=== PATIENT | male | born 1985 | race Caucasian/White ===

== ENCOUNTER → 2019-08-14 12:20 | Outpatient (BNVA) | payer OTHER, SELFPAY | PROVIDERS: Visit Provider Family Medicine | DX: J01.00 Acute maxillary sinusitis, unspecified (principal); J20.8 Acute bronchitis due to other specified organisms; B96.89 Other specified bacterial agents as the cause of diseases classified elsewhere; R50.9 Fever, unspecified | CPT/HCPCS: 87804 ==

== ENCOUNTER 2019-12-25 18:19 | Emergency (ER) | payer SELFPAY ==
[2019-12-25 18:23] VITALS: BP 131/73; PULSE 103; RESP 18; TEMP 37.4; BMI 36.9
[2019-12-25 19:12] VITALS: BP 111/66; PULSE 88; RESP 18; O2SAT 99
[2019-12-25 19:39] LABS: Basophils % 0.5 %; Eosinophils # 0.2 10^3/uL (0.0-0.8); Eosinophils % 2.1 %; Hematocrit 43.5 % (42.0-52.0); Hemoglobin 14.6 g/dL (11.7-16.6); Lymphocytes # 1.6 10^3/uL (0.8-4.8); Lymphocytes % 19.1 %; Mean Corpuscular HGB Conc 33.6 g/dL (30.0-36.0); Mean Corpuscular Hemoglobin 30.7 pg (28.0-34.0); Mean Corpuscular Volume 91.6 fL (80-94); Mean Platelet Volume 10.9 fL (7.4-10.4); Monocytes # 0.4 10^3/uL (0.2-0.9); Monocytes % 4.7 %; Neutrophils # 5.9 10^3/uL (1.8-7.7); Neutrophils % 73.4 %; Nucleated Red Blood Cells % 0 %; Platelet Count 210 10^3/cmm (130-400); Red Blood Count 4.75 10^6/uL (4.1-5.3); Red Cell Distribution Width 12.9 % (12.1-15.1); White Blood Count 8.1 10^3/uL (4.0-10.0)
[2019-12-25 19:40] VITALS: BP 147/70; PULSE 84; RESP 17; O2SAT 96
[2019-12-25 20:01] LABS: Alanine Aminotransferase 21 U/L (0-41); Albumin Level 4.5 g/dL (3.5-5.2); Alkaline Phosphatase 83 IU/L (40-130); Anion Gap 13.5 (5-19); Aspartate Amino Transferase 20 U/L (0-40); Blood Urea Nitrogen 12 mg/dL (6-20); Calcium 9.9 mg/dL (8.5-10.5); Carbon Dioxide 27 mmol/L (22-29); Chloride 104 mmol/L (98-107); Globulin 2.9 g/dL (1.3-4.6); Glomerular Filtration Rate 130.7 mL/min (90-130); Glucose 104 mg/dL (65-115); Magnesium 2.1 mg/dL (1.7-2.3); Osmolality Calculated 286 mOsm/kg (285-295); Potassium 4.5 mmol/L (3.5-5.1); Sodium 140 mmol/L (136-145); Total Bilirubin 0.3 mg/dL (0.15-1.2); Total Protein 7.4 g/dL (6.6-8.7)
[2019-12-25 20:02] LABS: Add Urine Microscopic? YES; Bilirubin Urine Neg (NEGATIVE); Blood Urine Neg (Negative); Glucose Urine UA 4+ (Normal); Ketones Urine Negative (Negative); Leukocyte Esterase Urine Negative (Negative); Nitrate Urine Negative (Negative); Protein Urine Neg (Negative); Specific Gravity, Urine 1.015 (1.005-1.030); Urine Appearance Cloudy (CLEAR); Urine Color Yellow (Yellow); Urobilinogen Urine Norm (Negative); pH Urine 5 (5-7)
[2019-12-25 20:06] LABS: Amphetamines Screen Urine Negative (Negative); Barbiturates Screen Urine Negative (Negative); Benzodiazepines Screen Urine Negative (Negative); Cocaine Screen Urine Negative (Negative); Opiate Screen Urine Negative (Negative); PCP Screen Urine Negative (Negative); THC Screen Urine Negative (Negative)
--- NOTE | 2019-12-25 20:08 | W.ED.OVERDOS ---
HPI - Overdose General: Chief Complaint: Overdose Stated Complaint: UNRESPONSIVE/ AWOKEN W/NARCAN Time Seen by Provider: 12/25/19 18:33 History of Present Illness: HPI Narrative: 34-year-old male found by police/or first assist registered nurse unresponsive in his car. In the field, intranasal Narcan was given with some response. EMS arrived, at which point his second dose was given by the or first assist registered nurse prior to EMS obtaining IV access. The patient awoke, was confused, but appropriate. On his way to the hospital, he admitted to infusing fentanyl IV. Evidently he was going through withdrawals, ran out of his Suboxone, and believes he could not wait till Saturday until his prescription could be filled. On exam, he is awake, oriented x3, alert, and cooperative. MD complaint: accidental overdose Onset (ago): minute(s) Timing confirmed by: other (police/or first assist registered nurse) Review of Systems Const: Denies: fever(s) or chills Eyes: Denies: change in vision ENMT: Denies: swelling of lips/tongue or epistaxis Card: Denies: chest pain, palpitations or irregular heart rhythm Resp: Denies: dyspnea, productive cough, non-productive cough or wheezing GI: Denies: abdominal pain, nausea or vomiting : Denies: difficulty urinating or hematuria Musc: Denies: neck pain or back pain Skin/Breast: Denies: rash, pruritus or erythema Neuro: Reports: confusion; Denies: headache(s), dizziness or vertigo Psych: Denies: anxiety, suicidal ideation or homicidal ideation [facility] ED PFSH: Social History (Updated 08/14/19 @ 12:20 by Jeannine Agrawal LPN) Smoking and tobacco status: current every day smoker Alcohol intake: never Physical Exam Const: GENERAL APPEARANCE: well developed ORIENTATION/CONSCIOUSNESS: Yes oriented to person, Yes oriented to place and Yes oriented to time HENMT: COMMON NORMALS: normocephalic, external ears normal and Normal external nose present HEAD & SCALP: normocephalic FACE & SINUS: normal facial exam NOSE: Normal external nose present and No nasal discharge present EXTERNAL EAR: Yes external ears normal MOUTH: tongue normal Eye: COMMON NORMALS: Equal, round and reactive pupils present, EOMs intact bilaterally and conjunctivae normal EYELID: eyelids normal CONJUNCTIVA: Yes conjunctivae normal PUPIL: Yes Equal, round and reactive pupils present Neck/C-Spine: GENERAL: No tracheal deviation Chest: COMMONS NORMALS: normal inspection of the chest CHEST: No tenderness Resp: COMMON NORMALS: clear to auscultation bilaterally EFFORT & INSPECTION: No tachypneic, No respiratory distress, No retractions, No uses accessory muscles and No tracheal deviation AUSCULTATION: clear to auscultation bilaterally, no rhonchi, no wheezes and lung sounds not diminished Cardio: COMMON NORMALS: regular rate and regular rhythm RATE: regular rate RHYTHM: regular rhythm HEART SOUNDS: no murmurs PERIPHERAL PULSES: radial pulses present GI: INSPECTION: No abdominal distension AUSCULTATION: No Hyperactive bowel sounds present and No Hypoactive bowel sounds present PALPATION: No Guarding due to palpation present (GI) and No Rigid due to palpation PERCUSSION: no dullness to percussion and no tympanic to percussion Neuro: SENSORIUM/ORIENTATION: Yes oriented to person, Yes oriented to place and Yes oriented to time Psych: COMMON NORMALS: mental status grossly normal Skin: COMMON NORMALS: no rashes or lesions noted GENERAL SKIN EXAM: no rashes or lesions noted Course Vital Signs: Vital signs: Vital Signs Temperature 99.3 F 12/25/19 18:23 Pulse Rate 88 12/25/19 20:58 Respiratory Rate 17 12/25/19 20:58 Blood Pressure 120/62 12/25/19 20:58 Pulse Oximetry 97 12/25/19 20:58 MDM - Overdose MDM Narrative: Medical decision making narrative: Patient has been here over an hour and a half. He is still awake, appropriate. He is received a liter of fluid. His blood pressure is 132/83 rhythm sinus is 75, oxygen saturations 98% on room air. His labs are normal he will be discharged from the ER Lab Data: Labs: Lab Results 12/25/19 12/25/19 12/25/19 Range/Units 19:18 19:18 19:39 WBC 8.1 (4.0-10.0) 10^3/ uL RBC 4.75 (4.1-5.3) 10^6/u L Hgb 14.6 (11.7-16.6) g/dL Hct 43.5 (42.0-52.0) % MCV 91.6 (80-94) fL MCH 30.7 (28.0-34.0) pg MCHC 33.6 (30.0-36.0) g/dL RDW 12.9 (12.1-15.1) % Plt Count 210 (130-400) 10^3/c mm MPV 10.9 H (7.4-10.4) fL Neut % (Auto) 73.4 % Lymph % (Auto) 19.1 % [place] % (Auto) 4.7 % Eos % (Auto) 2.1 % Baso % (Auto) 0.5 % Neut # (Auto) 5.9 (1.8-7.7) 10^3/u L Lymph # (Auto) 1.6 (0.8-4.8) 10^3/u L [place] # (Auto) 0.4 (0.2-0.9) 10^3/u L Eos # (Auto) 0.2 (0.0-0.8) 10^3/u L Baso # (Auto) 0.0 (0.0-0.1) 10^3/u L Nucleated RBC % (a uto) 0 % Nucleated RBCs # 0.0 /100WBC Sodium 140 (136-145) mmol/L Potassium 4.5 (3.5-5.1) mmol/L Chloride 104 (98-107) mmol/L Carbon Dioxide 27 (22-29) mmol/L Anion Gap 13.5 (5-19) BUN 12 (6-20) mg/dL Creatinine 0.7 (0.7-1.2) mg/dL GFR Calculation 130.7 H (90-130) mL/min Glucose 104 (65-115) mg/dL Calculated Osmolal ity 286 (285-295) mOsm/k g Calcium 9.9 (8.5-10.5) mg/dL Magnesium 2.1 (1.7-2.3) mg/dL Total Bilirubin 0.3 (0.15-1.2) mg/dL AST 20 (0-40) U/L ALT 21 (0-41) U/L Alkaline Phosphata se 83 (40-130) IU/L Total Protein 7.4 (6.6-8.7) g/dL Albumin 4.5 (3.5-5.2) g/dL Globulin 2.9 (1.3-4.6) g/dL Urine Color Yellow (Yellow) Urine Appearance Cloudy (CLEAR) Urine pH 5 (5-7) Ur Specific Gravit y 1.015 (1.005-1.030) Urine Protein Neg (Negative) Urine Glucose (UA) 4+ H (Normal) Urine Ketones Negative (Negative) Urine Blood Neg (Negative) Urine Nitrate Negative (Negative) Urine Bilirubin Neg (NEGATIVE) Urine Urobilinogen Norm (Negative) mg/dL Ur Leukocyte Asuncion ase Negative (Negative) Urine RBC 5-10 H (0-2) /hpf Urine WBC 0-4 H (0-5) /hpf Ur Squamous Epith Cells 5-10 H (0-5) Amorphous Sediment 3+ Urine Bacteria 2+ H (NONE) Salicylates < 0.3 L (3-10) mg/dL Urine Opiates Scre en (Negative) ng/mL Acetaminophen < 5.0 L (10-30) ug/mL Ur Barbiturates Sc reen (Negative) ng/mL Ur Phencyclidine S crn (Negative) ng/mL Ur Amphetamines Sc reen (Negative) ng/mL U Benzodiazepines Scrn (Negative) ng/mL Urine Cocaine Scre en (Negative) ng/mL U Marijuana (THC) Screen (Negative) ng/mL Ethyl Alcohol < 10 (0-10) mg/dL 12/25/19 Range/Units 19:39 WBC (4.0-10.0) 10^3/ uL RBC (4.1-5.3) 10^6/u L Hgb (11.7-16.6) g/dL Hct (42.0-52.0) % MCV (80-94) fL MCH (28.0-34.0) pg MCHC (30.0-36.0) g/dL RDW (12.1-15.1) % Plt Count (130-400) 10^3/c mm MPV (7.4-10.4) fL Neut % (Auto) % Lymph % (Auto) % [place] % (Auto) % Eos % (Auto) % Baso % (Auto) % Neut # (Auto) (1.8-7.7) 10^3/u L Lymph # (Auto) (0.8-4.8) 10^3/u L [place] # (Auto) (0.2-0.9) 10^3/u L Eos # (Auto) (0.0-0.8) 10^3/u L Baso # (Auto) (0.0-0.1) 10^3/u L Nucleated RBC % (a uto) % Nucleated RBCs # /100WBC Sodium (136-145) mmol/L Potassium (3.5-5.1) mmol/L Chloride (98-107) mmol/L Carbon Dioxide (22-29) mmol/L Anion Gap (5-19) BUN (6-20) mg/dL Creatinine (0.7-1.2) mg/dL GFR Calculation (90-130) mL/min Glucose (65-115) mg/dL Calculated Osmolal ity (285-295) mOsm/k g Calcium (8.5-10.5) mg/dL Magnesium (1.7-2.3) mg/dL Total Bilirubin (0.15-1.2) mg/dL AST (0-40) U/L ALT (0-41) U/L Alkaline Phosphata se (40-130) IU/L Total Protein (6.6-8.7) g/dL Albumin (3.5-5.2) g/dL Globulin (1.3-4.6) g/dL Urine Color (Yellow) Urine Appearance (CLEAR) Urine pH (5-7) Ur Specific Gravit y (1.005-1.030) Urine Protein (Negative) Urine Glucose (UA) (Normal) Urine Ketones (Negative) Urine Blood (Negative) Urine Nitrate (Negative) Urine Bilirubin (NEGATIVE) Urine Urobilinogen (Negative) mg/dL Ur Leukocyte Asnucion ase (Negative) Urine RBC (0-2) /hpf Urine WBC (0-5) /hpf Ur Squamous Epith Cells (0-5) Amorphous Sediment Urine Bacteria (NONE) Salicylates (3-10) mg/dL Urine Opiates Scre en Negative (Negative) ng/mL Acetaminophen (10-30) ug/mL Ur Barbiturates Sc reen Negative (Negative) ng/mL Ur Phencyclidine S crn Negative (Negative) ng/mL Ur Amphetamines Sc reen Negative (Negative) ng/mL U Benzodiazepines Scrn Negative (Negative) ng/mL Urine Cocaine Scre en Negative (Negative) ng/mL U Marijuana (THC) Screen Negative (Negative) ng/mL Ethyl Alcohol (0-10) mg/dL Discharge Plan Discharge Patient Disposition: Home, Self-Care Clinical Impression: Poisoning by opiate or related narcotic Drug overdose Qualifiers: Encounter type: initial encounter Injury intent: accidental or unintentional Qualified Code(s): T50.901A - Poisoning by unspecified drugs, medicaments and biological substances, accidental (unintentional), initial encounter Condition: Stable Prescriptions: No Action buprenorphine-naloxone [Suboxone] 4-1 mg film 1 film SUBLINGUAL BID@08,16 RF: 0 duloxetine [Cymbalta] 30 mg capsule,delayed release(DR/EC) 30 mg PO DAILY RF: 0 Discharge Orders: Discharge Order (Routine); Ordered 12/25/19 Ordered By: Dariusz Costello Discharge Diet: Usual diet Discharge Activity: Increase activity as tolerated Patient Instructions: Opioid Withdrawal (ED) Activity Restrictions/Additional Instructions: Call for your refill on Saturday. Abstain from the use of any illicit substances. Drink plenty of water. Stay cool. Discharge Date/Time: 12/25/19 20:59 Coding Level of Care Code ED Supervisor Roving for Gypsy Fwben Exam Comprehensive
[2019-12-25 20:19] LABS: Acetaminophen < 5.0 ug/mL (10-30); Alcohol Level < 10 mg/dL (0-10); Salicylate < 0.3 mg/dL (3-10)
[2019-12-25 20:26] LABS: Add Urine Culture? No; Amorphous Sediment Urine 3+; Bacteria Urine 2+; WBC Urine 0-4 /hpf (0-5)
[2019-12-25 20:58] VITALS: BP 120/62; PULSE 88; RESP 17; O2SAT 97
== END 2019-12-25 20:59 | disposition home or self-care (01) ==
PROVIDERS: Emergency Provider Emergency Medicine
DX: T40.4X1A Poisoning by other synthetic narcotics, accidental (unintentional), initial encounter (principal); F17.210 Nicotine dependence, cigarettes, uncomplicated
CPT/HCPCS: 12345; 80053; 80306; 80307; 81001; 81003; 83735; 85025; 96360; 99283

== ENCOUNTER 2021-03-11 18:13 | Emergency (ER) | payer MEDICAID, SELFPAY ==
[2021-03-11 18:17] VITALS: BP 156/65; PULSE 109; RESP 18; TEMP 37.4; O2SAT 98; BMI 31.6
--- NOTE | 2021-03-11 18:17 | W.ED.OVERDOS ---
HPI - Overdose General: Chief Complaint: Overdose Stated Complaint: FENTANYL OVERDOSE Time Seen by Provider: 03/11/21 18:16 Source: patient and EMS Mode of arrival: EMS Limitations: no limitations History of Present Illness: HPI Narrative: 36-year-old male who states he was using fentanyl accidentally overdosed on IV fentanyl. EMS states they arrived there roughly 15 to 20 minutes ago and he had starting respirations and was unresponsive. They gave him 2 mg of Narcan he is now awake and alert. He denies trying to overdose he states he was using recreationally and must of injected too much. He is awake alert able answer all my questions appropriately. States that he uses meth sometimes denies any other drug at this time. Review of Systems Const: Denies: fever(s), chills, body aches or change in appetite Eyes: Denies: blurry vision or eye discomfort ENMT: Denies: throat pain or dental pain Card: Denies: chest pain Resp: Denies: dyspnea GI: Denies: abdominal pain, nausea, vomiting or diarrhea : Denies: dysuria Musc: Denies: neck pain or back pain Skin/Breast: Denies: rash Neuro: Denies: headache(s) Psych: Denies: depression Suleiman/Lymph: Denies: easy bruising All/Imm: Denies: urticaria PFSH ED PFSH: Social History (Updated 08/14/19 @ 12:20 by Jeannine Agrawal LPN) Smoking and tobacco status: current every day smoker Alcohol intake: never Physical Exam Const: COMMON NORMALS: no acute distress, patient oriented x3 and healthy appearing HENMT: COMMON NORMALS: normocephalic and atraumatic HEAD & SCALP: normocephalic and atraumatic Eye: COMMON NORMALS: Equal, round and reactive pupils present and EOMs intact bilaterally PUPIL: Yes Equal, round and reactive pupils present Neck/C-Spine: COMMON NORMALS: full ROM and supple Chest: COMMONS NORMALS: normal inspection of the chest and normal palpation of entire chest wall Resp: COMMON NORMALS: normal respiratory effort, No retractions, No use of accessory muscles and clear to auscultation bilaterally AUSCULTATION: clear to auscultation bilaterally Cardio: COMMON NORMALS: regular rate, regular rhythm and No murmurs present (Cardio) RATE: regular rate RHYTHM: regular rhythm GI: COMMON NORMALS: Normal to inspection, nondistended, normoactive bowel sounds present, Soft to palpation, non-tender and no masses PALPATION: Yes Soft to palpation Extremity: COMMON NORMALS: normal to inspection and full ROM Neuro: COMMON NORMALS: patient oriented x3, moves all extremities and no focal motor deficits Psych: COMMON NORMALS: mental status grossly normal, Normal thought process present and cooperative THOUGHT PROCESS: Normal thought process present Skin: COMMON NORMALS: no rashes or lesions noted and no wounds GENERAL SKIN EXAM: no rashes or lesions noted Course Vital Signs: Vital signs: Vital Signs Temperature 99.4 F 03/11/21 18:17 Pulse Rate 96 03/11/21 18:25 Respiratory Rate 14 03/11/21 18:25 Blood Pressure 156/56 03/11/21 18:25 Pulse Oximetry 99 03/11/21 18:25 MDM - Overdose MDM Narrative: Medical decision making narrative: Patient presents here with a fentanyl overdose. Patient was observed here for 2 hours and has been well-appearing and his lab work is normal. He stable for discharge is to follow-up his PCP and return if worsening. This was accidental he is not suicidal. Lab Data: Labs: Lab Results 03/11/21 03/11/21 Range/Units 18:28 18:28 WBC 5.7 (4.0-10.0) 10^3/ uL RBC 4.58 (4.1-5.3) 10^6/u L Hgb 13.5 (11.7-16.6) g/dL Hct 40.4 L (42.0-52.0) % MCV 88.2 (80-94) fl MCH 29.5 (28.0-34.0) pg MCHC 33.4 (30.0-36.0) g/dL RDW 13.8 (12.1-15.1) % Plt Count 209 (130-400) 10^3/c mm MPV 9.9 (7.4-10.4) fL Neut % (Auto) 66.5 % Lymph % (Auto) 26.7 % [place] % (Auto) 3.3 % Eos % (Auto) 3.0 % Baso % (Auto) 0.3 % Neut # (Auto) 3.82 (1.8-7.7) 10^3/u L Lymph # (Auto) 1.5 (0.8-4.8) 10^3/u L [place] # (Auto) 0.2 (0.2-0.9) 10^3/u L Eos # (Auto) 0.2 (0.0-0.8) 10^3/u L Baso # (Auto) 0.0 (0.0-0.1) 10^3/u L Nucleated RBC % (a uto) 0 % Nucleated RBCs # 0.0 /100WBC Sodium 137 (136-145) mmol/L Potassium 3.9 (3.5-5.1) mmol/L Chloride 99 (98-107) mmol/L Carbon Dioxide 29 (22-29) mmol/L Anion Gap 12.9 (5-19) BUN 10 (6-20) mg/dL Creatinine 0.7 (0.7-1.2) mg/dL GFR Calculation 129.1 (90-130) mL/min Glucose 136 H (65-115) mg/dL Calculated Osmolal ity 285 (285-295) mOsm/k g Calcium 8.6 (8.5-10.5) mg/dL Total Bilirubin 0.6 (0.15-1.2) mg/dL AST 19 (0-40) U/L ALT 17 (0-41) U/L Alkaline Phosphata se 66 (40-130) IU/L Total Protein 6.7 (6.6-8.7) g/dL Albumin 4.0 (3.5-5.2) g/dL Globulin 2.7 (1.3-4.6) g/dL Salicylates < 0.3 L (3-10) mg/dL Acetaminophen < 5.0 L (10-30) ug/mL Ethyl Alcohol < 10 (0-10) mg/dL Imaging Data^: CXR: Attestation: I personally reviewed and interpreted this imaging study as follows: Radiologist's impression: [address] [address] XRay Report Signed Patient: Denys Beverly Unit #: [id number] : 1985 Age/Sex: 36 / M ADM Date: 03/11/21 Loc: ER Room/Bed: Attending Dr: Ordering Provider/Ordering MD: Ping Washington MD Date of Service: 03/11/21 Procedure(s): XR chest 1V portable [id number] Accession Number(s): [id number] Report Number: [id number] PROCEDURE INFORMATION: Exam: XR Chest Exam date and time: 03/11/2021 6:22 PM Age: 36 years old Clinical indication: Pain; Chest pressure; Prior surgery; Surgery date: 6+ months; Surgery type: Open heart; Patient HX: Overdose on fentanyl; Additional info: Od TECHNIQUE: Imaging protocol: XR of the chest. Views: 1 view. COMPARISON: CR Chest 1 [place] [id number] 02/12/2019 9:14 AM FINDINGS: Lungs: Unremarkable. No consolidation. Pleural spaces: Unremarkable. No pleural effusion. No pneumothorax. Heart/Mediastinum: Unremarkable. No cardiomegaly. Bones/joints: Unremarkable. XR/XR chest 1V portable [id number] IMPRESSION: No acute findings. Dictated By: Aristides Garnica DO Signed By: Aristides Garnica DO Signed Date/Time: 03/11/211923 DD/ 22 EKG Data^: EKG 1: Attestation: I personally reviewed and interpreted this EKG as follows: EKG interpretation date: 03/11/21 EKG interpretation time: 18:29 Interpretation: nsr hr [address] or t wave abnormalities qrs 97 qtc 399 Discharge Plan Discharge Patient Disposition: Home Clinical Impression: Drug overdose Condition: Stable Prescriptions: No Action buprenorphine-naloxone [Suboxone] 4-1 mg film 1 film SUBLINGUAL BID@08,16 RF: 0 duloxetine [Cymbalta] 30 mg capsule,delayed release(DR/EC) 30 mg PO DAILY RF: 0 Discharge Orders: Discharge ED (Routine); Ordered 03/11/21 Ordered By: Ping Washington Discharge Diet: Advance as tolerated Discharge Activity: Resume usual activity Patient Instructions: Polysubstance Abuse (ED) Coding Level of Care Code ED Lineman Service Or Work Dispatcher for Chg Fwd Exam Comprehensive
--- NOTE | 2021-03-11 18:22 | ECG_ITS ---
[facility] Test Date: 2021-03-11 Pat Name: Denys Beverly Department: Room: Gender: Male Certified Medicine Aide: : 1985 Requested By: Ping Washington Order Number: [id number] Ernesto MD: Julio Mills M.D. Measurements Intervals [place] Rate: 98 P: 52 WI: 165 QRS: 58 QRSD: 97 T: 56 QT: 343 QTc: 439 Interpretive Statements SINUS RHYTHM INCOMPLETE RIGHT BUNDLE BRANCH BLOCK [90+ ms QRS DURATION, TERMINAL R IN V1/V2, 40+ ms S IN I/aVL/V4/V5/V6] Compared to ECG 02/12/2019 11:41:40 Incomplete right bundle-branch block now present Electronically Signed On 03-12-2021 18:01:37 CDT by Julio Mills M.D. [email or web address]
--- NOTE | 2021-03-11 18:22 | XRR_ITS ---
PROCEDURE INFORMATION: Exam: XR Chest Exam date and time: 03/11/2021 6:22 PM Age: 36 years old Clinical indication: Pain; Chest pressure; Prior surgery; Surgery date: 6+ months; Surgery type: Open heart; Patient HX: Overdose on fentanyl; Additional info: Od TECHNIQUE: Imaging protocol: XR of the chest. Views: 1 view. COMPARISON: CR Chest 1 [place] [id number] 02/12/2019 9:14 AM FINDINGS: Lungs: Unremarkable. No consolidation. Pleural spaces: Unremarkable. No pleural effusion. No pneumothorax. Heart/Mediastinum: Unremarkable. No cardiomegaly. Bones/joints: Unremarkable. XR/XR chest 1V portable [id number] IMPRESSION: No acute findings.
[2021-03-11 18:25] VITALS: BP 156/56; PULSE 96; RESP 14; O2SAT 98; O2SAT 99
--- NOTE | 2021-03-11 18:43 | PC.NURSE ---
labs drawn via IV; Patient given urinal for UA.
[2021-03-11 18:47] LABS: Basophils % 0.3 %; Eosinophils # 0.2 10^3/uL (0.0-0.8); Hematocrit 40.4 % (42.0-52.0); Hemoglobin 13.5 g/dL (11.7-16.6); Lymphocytes # 1.5 10^3/uL (0.8-4.8); Lymphocytes % 26.7 %; Mean Corpuscular HGB Conc 33.4 g/dL (30.0-36.0); Mean Corpuscular Hemoglobin 29.5 pg (28.0-34.0); Mean Corpuscular Volume 88.2 fl (80-94); Mean Platelet Volume 9.9 fL (7.4-10.4); Monocytes # 0.2 10^3/uL (0.2-0.9); Monocytes % 3.3 %; Neutrophils # 3.82 10^3/uL (1.8-7.7); Neutrophils % 66.5 %; Nucleated Red Blood Cells % 0 %; Platelet Count 209 10^3/cmm (130-400); Red Blood Count 4.58 10^6/uL (4.1-5.3); Red Cell Distribution Width 13.8 % (12.1-15.1); White Blood Count 5.7 10^3/uL (4.0-10.0)
[2021-03-11 19:06] LABS: Alanine Aminotransferase 17 U/L (0-41); Alkaline Phosphatase 66 IU/L (40-130); Anion Gap 12.9 (5-19); Aspartate Amino Transferase 19 U/L (0-40); Blood Urea Nitrogen 10 mg/dL (6-20); Calcium 8.6 mg/dL (8.5-10.5); Carbon Dioxide 29 mmol/L (22-29); Chloride 99 mmol/L (98-107); Globulin 2.7 g/dL (1.3-4.6); Glomerular Filtration Rate 129.1 mL/min (90-130); Glucose 136 mg/dL (65-115); Osmolality Calculated 285 mOsm/kg (285-295); Potassium 3.9 mmol/L (3.5-5.1); Sodium 137 mmol/L (136-145); Total Bilirubin 0.6 mg/dL (0.15-1.2); Total Protein 6.7 g/dL (6.6-8.7)
[2021-03-11 19:09] LABS: Acetaminophen < 5.0 ug/mL (10-30); Salicylate < 0.3 mg/dL (3-10)
[2021-03-11 19:10] LABS: Alcohol Level < 10 mg/dL (0-10)
[2021-03-11 20:16] VITALS: BP 142/78; PULSE 79; RESP 20; O2SAT 98
[2021-03-11 20:31] LABS: Amphetamines Screen Urine Positive (Negative); Barbiturates Screen Urine Negative (Negative); Benzodiazepines Screen Urine Negative (Negative); Cocaine Screen Urine Negative (Negative); Opiate Screen Urine Positive (Negative); PCP Screen Urine Negative (Negative); THC Screen Urine Negative (Negative)
[2021-03-13 17:11] LABS: Quest SARS-CoV-2 RNA NOT DETECTED (NOT DETECTED)
== END 2021-03-11 20:10 | disposition home or self-care (01) ==
PROVIDERS: Emergency Provider Emergency Medicine
DX: T40.411A Poisoning by fentanyl or fentanyl analogs, accidental (unintentional), initial encounter (principal); F17.210 Nicotine dependence, cigarettes, uncomplicated; Z20.822 Contact with and (suspected) exposure to COVID-19
CPT/HCPCS: 71045; 80053; 80306; 80307; 85025; 87635; 93005; 99283

== ENCOUNTER 2021-03-20 07:32 | Emergency (ER) | payer MEDICAID, SELFPAY ==
[2021-03-20] VITALS (7 sets, daily range): BP systolic 114–136; BP diastolic 58–89; PULSE 102–123; RESP 18–20; TEMP 37.5; O2SAT 95–99; BMI 31.6
--- NOTE | 2021-03-20 07:46 | W.ED.EXTPRO ---
Documented by User: JOSE LUIS Martínez 03/21/21 07:11 HPI - Extremity Problem General: Chief complaint: Extremity Injury, Upper Stated complaint: Swelling/Inflammation in Arms Time Seen by Provider: 03/20/21 07:33 History of Present Illness: HPI Narrative: Patient is a 36-year-old male who comes to the ED with upper extremity pain and swelling. Pain and swelling in both right and left elbows started 2 days ago. On Saturday patient hit his right elbow on a car mirror and since then he has had some pain and swelling of the right elbow. He rates his pain currently an 8 out of 10 says his left elbow is the most painful. He says it is hard for him to bend left elbow or rotate his wrist. Patient does admit to being an IV drug user and has recently used IV drugs in the past couple days. Patient has a history of MRSA infections. Associated symptoms: Deny chest pain, fever(s) or rash Review of Systems Const: Denies: fever(s), chills or fatigue Eyes: Denies: change in vision or eye discomfort ENMT: Denies: throat pain, odynophagia, nasal discharge or nasal congestion Card: Denies: chest pain, palpitations, edema, swelling of feet/ankles, dyspnea on exertion or orthopnea Resp: Denies: dyspnea, productive cough or non-productive cough GI: Denies: abdominal pain, nausea, vomiting, diarrhea, constipation or hematochezia : Denies: flank pain, difficulty urinating, dysuria or hematuria Musc: Reports: extremity pain (Bilateral elbow area pain); Denies: neck pain, back pain or extremity swelling Skin/Breast: Reports: erythema (Right and left elbows), skin tenderness (Right and left elbows) and skin swelling (Right and left elbows); Denies: rash or new lesions Neuro: Denies: headache(s), numbness in extremities or weakness in extremities PFS ED PFSH: Social History Smoking and tobacco status: current every day smoker Alcohol intake: never Physical Exam Const: COMMON NORMALS: patient oriented x3 and alert GENERAL APPEARANCE: cooperative, comfortable, in distress (Patient appears uncomfortable and in pain.) and diaphoretic HENMT: COMMON NORMALS: normocephalic HEAD & SCALP: normocephalic MOUTH: Normal oral and palatal mucosa present THROAT: posterior oropharynx normal and uvula midline Eye: COMMON NORMALS: Equal, round and reactive pupils present PUPIL: Yes Equal, round and reactive pupils present Neck/C-Spine: COMMON NORMALS: supple GENERAL: Yes normal visual inspection Resp: COMMON NORMALS: normal respiratory effort, No retractions, No use of accessory muscles and clear to auscultation bilaterally AUSCULTATION: clear to auscultation bilaterally Cardio: COMMON NORMALS: regular rate, regular rhythm, S1 normal heart sound present, S2 normal heart sound present, No gallops present (Cardio), No clicks present (Cardio), No murmurs present (Cardio) and Peripheral pulses 2+ throughout RATE: regular rate RHYTHM: regular rhythm HEART SOUNDS: S1 normal heart sound present and S2 normal heart sound present PERIPHERAL PULSES: Peripheral pulses 2+ throughout GI: COMMON NORMALS: Normal to inspection, nondistended, normoactive bowel sounds present, Soft to palpation, non-tender and no masses PALPATION: Yes Soft to palpation : COMMON NORMALS: Yes no CVA tenderness BLADDER/KIDNEY EXAM: Yes no CVA tenderness Back/Pelvis: COMMON NORMALS: no CVA tenderness Extremity: NARRATIVE EXTREMITY EXAM: Right left elbow erythema, warmth and tenderness of the skin. Induration and nonfluctuance on palpation. Findings suggestive of some developing cellulitis. No streaking seen up the arm. GENERAL: Yes normal exam except as noted Neuro: COMMON NORMALS: patient oriented x3 and moves all extremities SENSORIUM/ORIENTATION: Yes alert Skin: NARRATIVE SKIN EXAM: Right left elbow erythema, warmth and tenderness of the skin. Induration and nonfluctuance on palpation. Findings suggestive of some developing cellulitis. No streaking seen up the arm. GENERAL SKIN EXAM: dry skin Course Vital Signs: Vital signs: Vital Signs Temperature 99.5 F 03/20/21 07:39 Pulse Rate 102 H 03/20/21 10:17 Respiratory Rate 19 H 03/20/21 10:17 Blood Pressure 114/58 03/20/21 10:17 Pulse Oximetry 99 03/20/21 10:17 MDM - Extremity (Nontraumatic) MDM Narrative: Medical decision making narrative: Patient is a 36-year-old male comes to the ED with bilateral elbow pain and swelling. Patient admits to being an IV drug user and recent IV drug use. Patient also states that he hit his right elbow on car mirror. Left elbow is the most painful for patient. Patient has a history of MRSA infections Patient is diaphoretic and appears very uncomfortable and in pain. Around his right and left elbows he has erythema, warmth and tenderness which is suggestive of a developing cellulitis likely due to his IV drug use. No streaking seen up the arms bilaterally. White blood cell count 19.1 the rest of CBC and CMP were unremarkable. Lactic was normal at 1.8. X-ray right elbow shows no acute findings or fractures. CT of left upper extremity shows extensive cellulitis around the distal humerus and elbow region. Patient was given IV fluids and vancomycin while here in the ED. he was discharged home with a prescription for Bactrim and a written prescription for hydrocodone 5/325 mg number 6 tablets. Follow-up with your PCP in the next 3 to 5 days for reevaluation. Return to ED precautions given. Patient understood agree with plan. Lab Data: Labs: Lab Results 03/20/21 03/20/21 03/20/21 08:05 08:05 08:05 WBC 19.1 10^3/uL H 10 ^3/uL (4.0-10.0) RBC 4.89 10^6/uL 10^6 /uL (4.1-5.3) Hgb 14.4 g/dL g/dL (11.7-16.6) Hct 42.4 % % (42.0-52.0) MCV 86.7 fl fl (80-94) MCH 29.4 pg pg (28.0-34.0) MCHC 34.0 g/dL g/dL (30.0-36.0) RDW 14.0 % % (12.1-15.1) Plt Count 195 10^3/cmm 10^3 /cmm (130-400) MPV 11.3 fL H fL (7.4-10.4) Neut % (Auto) 86.3 % % Lymph % (Auto) 5.2 % % [place] % (Auto) 7.0 % % Eos % (Auto) 0.1 % % Baso % (Auto) 0.5 % % Neut # (Auto) 16.48 10^3/uL H 1 0^3/uL (1.8-7.7) Lymph # (Auto) 1.0 10^3/uL 10^3/ uL (0.8-4.8) [place] # (Auto) 1.3 10^3/uL H 10^ 3/uL (0.2-0.9) Eos # (Auto) 0.0 10^3/uL 10^3/ uL (0.0-0.8) Baso # (Auto) 0.1 10^3/uL 10^3/ uL (0.0-0.1) Nucleated RBC % (a uto) 0 % % Nucleated RBCs # 0.0 /100WBC /100W BC Sodium Cancelled Potassium Cancelled Chloride Cancelled Carbon Dioxide Cancelled Anion Gap Cancelled BUN Cancelled Creatinine Cancelled GFR Calculation Cancelled Glucose Cancelled Calculated Osmolal ity Cancelled Lactic Acid 1.8 mmol/L mmol/L (0.5-2.2) Calcium Cancelled Total Bilirubin Cancelled AST Cancelled ALT Cancelled Alkaline Phosphata se Cancelled Total Protein Cancelled Albumin Cancelled Globulin Cancelled 03/20/21 09:10 WBC RBC Hgb Hct MCV MCH MCHC RDW Plt Count MPV Neut % (Auto) Lymph % (Auto) [place] % (Auto) Eos % (Auto) Baso % (Auto) Neut # (Auto) Lymph # (Auto) [place] # (Auto) Eos # (Auto) Baso # (Auto) Nucleated RBC % (a uto) Nucleated RBCs # Sodium 131 mmol/L L mmol /L (136-145) Potassium 3.8 mmol/L mmol/L (3.5-5.1) Chloride 95 mmol/L L mmol/ L (98-107) Carbon Dioxide 24 mmol/L mmol/L (22-29) Anion Gap 15.8 (5-19) BUN 9 mg/dL mg/dL (6-20) Creatinine 0.6 mg/dL L mg/dL (0.7-1.2) GFR Calculation 154.2 mL/min H mL /min (90-130) Glucose 122 mg/dL H mg/dL (65-115) Calculated Osmolal ity 272 mOsm/kg L mOs m/kg (285-295) Lactic Acid Calcium 8.3 mg/dL L mg/dL (8.5-10.5) Total Bilirubin 1.3 mg/dL H mg/dL (0.15-1.2) AST 37 U/L U/L (0-40) ALT 66 U/L H U/L (0-41) Alkaline Phosphata se 202 IU/L H IU/L (40-130) Total Protein 6.5 g/dL L g/dL (6.6-8.7) Albumin 3.1 g/dL L g/dL (3.5-5.2) Globulin 3.4 g/dL g/dL (1.3-4.6) Imaging Data^: Xray Ortho: Attestation: I personally reviewed and interpreted this imaging study as follows: My impression: [facility] [address] [place] [address]. [place] [address] XRay Report Signed Patient: Denys Beverly Unit #: [id number] : 1985 Age/Sex: 36 / M ADM Date: 03/20/21 Loc: ER Room/Bed: Attending Dr: Ordering Provider/Ordering MD: Lon Florentino Date of Service: 03/20/21 Procedure(s): XR elbow RT min 3V* [id number] Accession Number(s): [id number] Report Number: [id number] WS: [id number] Exam: XR elbow RT min 3V* [id number] Date/Time of Exam: 03/20/2021 8:01 AM Reason For Exam: pt hit elbow on object-swelling and pain No acute fracture or dislocation. No joint effusion demonstrated. An IV cannula is noted in the antecubital fossa. Normal soft tissues. XR/XR elbow RT min 3V* [id number] IMPRESSION: 1. No fracture or dislocation. Dictated By: Gene Gomez DO Signed By: Gene Gomez DO Signed Date/Time: 03/20/21817 DD/ [address]: Attestation: I personally reviewed and interpreted this imaging study as follows: Radiologist's impression: [facility] [address] [place] [address]. [place] [address] CT Scan Report Signed Patient: Denys Beverly Unit #: [id number] : 1985 Age/Sex: 36 / M ADM Date: 03/20/21 Loc: ER Room/Bed: Attending Dr: Ordering Provider/Ordering MD: Lon Florentino Date of Service: 03/20/21 Procedure(s): [place] [address] Accession Number(s): [id number] Report Number: [id number] WS: [id number] CT LEFT UPPER EXTREMITY WITH CONTRAST. HISTORY: swelling, warmth and tenderness around elbow Technique: All CT scans at [facility] use at least one of these dose optimization techniques: automated exposure control; mA and/or kV adjustment per patient size (includes targeted exams where dose is matched to clinical indication); or iterative reconstruction. DLP: 867.83 mGy.cm Contrast: Omnipaque 350; 95 mL IV. COMPARISON: 03/20/2021 radiographs There is a large amount of soft tissue edema and cellulitis surrounding the upper extremity. Most significant surrounding the distal humerus and elbow. No focal collection to suggest an abscess. The vessels are all enhancing normally. No thrombus identified or occlusion. There is no joint effusion at the elbow. No fractures. [place] [address] IMPRESSION: 1. Extensive cellulitis surrounding the distal humerus and elbow. 2. No fracture or joint effusion. 3. No abscess. Dictated By: Erinn Alfaro DO Signed By: Erinn Alfaro DO Signed Date/Time: 03/20/21 1110 DD/ 1107 Discharge Plan Discharge Patient Disposition: Home Clinical Impression: Cellulitis Qualifiers: Site of cellulitis: extremity Site of cellulitis of extremity: upper extremity Laterality: left Qualified Code(s): L03.114 - Cellulitis of left upper limb Condition: Stable Prescriptions: New Bactrim DS 800-160 mg tablet 1 tab PO BID 10 Days Qty: 20 RF: 0 No Action buprenorphine-naloxone [Suboxone] 4-1 mg film 1 film SUBLINGUAL BID@,16 RF: 0 duloxetine [Cymbalta] 30 mg capsule,delayed release(DR/EC) 30 mg PO DAILY RF: 0 Discharge Orders: Discharge ED (Routine); Ordered 03/20/21 Ordered By: Lon Florentino Discharge Diet: Regular Discharge Activity: Increase activity as tolerated Patient Instructions: Cellulitis (ED), Opioid Safety Activity Restrictions/Additional Instructions: Follow-up with medical provider as directed Take medications as prescribed. Return to the ER or your medical provider if condition worsens. Please read and understand discharge instructions. Thank you for choosing [facility] for your healthcare needs today. Please realize this is an emergency room and that we are providing you with a medical screening exam and this may not be complete and all inclusive of all the testing and or work up that you may need to determine your ailment or severity of your illness. It is very important that you follow up as instructed or that you return to the Emergency Department should you have concerns or if your condition changes or worsens in any way. Coding Level of Care Code ED Production Cook for Chg Fwd Exam Comprehensive Documented by User: Maged Maddox DO 03/21/21 08:17 HPI - Extremity Problem General: Chief complaint: Extremity Injury, Upper Stated complaint: Swelling/Inflammation in Arms Time Seen by Provider: 03/20/21 07:33 [facility] ED PFSH: Social History Smoking and tobacco status: current every day smoker Alcohol intake: never Course Vital Signs: Vital signs: Vital Signs Temperature 99.5 F 03/20/21 07:39 Pulse Rate 102 H 03/20/21 10:17 Respiratory Rate 19 H 03/20/21 10:17 Blood Pressure 114/58 03/20/21 10:17 Pulse Oximetry 99 03/20/21 10:17 MDM - Extremity (Nontraumatic) MDM Narrative: Medical decision making narrative: Case reviewed and discussed with Fatuma Johnston agree with assessment and plan Lab Data: Labs: Lab Results 03/20/21 03/20/21 03/20/21 08:05 08:05 08:05 WBC 19.1 10^3/uL H 10 ^3/uL (4.0-10.0) RBC 4.89 10^6/uL 10^6 /uL (4.1-5.3) Hgb 14.4 g/dL g/dL (11.7-16.6) Hct 42.4 % % (42.0-52.0) MCV 86.7 fl fl (80-94) MCH 29.4 pg pg (28.0-34.0) MCHC 34.0 g/dL g/dL (30.0-36.0) RDW 14.0 % % (12.1-15.1) Plt Count 195 10^3/cmm 10^3 /cmm (130-400) MPV 11.3 fL H fL (7.4-10.4) Neut % (Auto) 86.3 % % Lymph % (Auto) 5.2 % % [place] % (Auto) 7.0 % % Eos % (Auto) 0.1 % % Baso % (Auto) 0.5 % % Neut # (Auto) 16.48 10^3/uL H 1 0^3/uL (1.8-7.7) Lymph # (Auto) 1.0 10^3/uL 10^3/ uL (0.8-4.8) [place] # (Auto) 1.3 10^3/uL H 10^ 3/uL (0.2-0.9) Eos # (Auto) 0.0 10^3/uL 10^3/ uL (0.0-0.8) Baso # (Auto) 0.1 10^3/uL 10^3/ uL (0.0-0.1) Nucleated RBC % (a uto) 0 % % Nucleated RBCs # 0.0 /100WBC /100W BC Sodium Cancelled Potassium Cancelled Chloride Cancelled Carbon Dioxide Cancelled Anion Gap Cancelled BUN Cancelled Creatinine Cancelled GFR Calculation Cancelled Glucose Cancelled Calculated Osmolal ity Cancelled Lactic Acid 1.8 mmol/L mmol/L (0.5-2.2) Calcium Cancelled Total Bilirubin Cancelled AST Cancelled ALT Cancelled Alkaline Phosphata se Cancelled Total Protein Cancelled Albumin Cancelled Globulin Cancelled 03/20/21 09:10 WBC RBC Hgb Hct MCV MCH MCHC RDW Plt Count MPV Neut % (Auto) Lymph % (Auto) [place] % (Auto) Eos % (Auto) Baso % (Auto) Neut # (Auto) Lymph # (Auto) [place] # (Auto) Eos # (Auto) Baso # (Auto) Nucleated RBC % (a uto) Nucleated RBCs # Sodium 131 mmol/L L mmol /L (136-145) Potassium 3.8 mmol/L mmol/L (3.5-5.1) Chloride 95 mmol/L L mmol/ L (98-107) Carbon Dioxide 24 mmol/L mmol/L (22-29) Anion Gap 15.8 (5-19) BUN 9 mg/dL mg/dL (6-20) Creatinine 0.6 mg/dL L mg/dL (0.7-1.2) GFR Calculation 154.2 mL/min H mL /min (90-130) Glucose 122 mg/dL H mg/dL (65-115) Calculated Osmolal ity 272 mOsm/kg L mOs m/kg (285-295) Lactic Acid Calcium 8.3 mg/dL L mg/dL (8.5-10.5) Total Bilirubin 1.3 mg/dL H mg/dL (0.15-1.2) AST 37 U/L U/L (0-40) ALT 66 U/L H U/L (0-41) Alkaline Phosphata se 202 IU/L H IU/L (40-130) Total Protein 6.5 g/dL L g/dL (6.6-8.7) Albumin 3.1 g/dL L g/dL (3.5-5.2) Globulin 3.4 g/dL g/dL (1.3-4.6) Discharge Plan Discharge Patient Disposition: Home Clinical Impression: Cellulitis Qualifiers: Site of cellulitis: extremity Site of cellulitis of extremity: upper extremity Laterality: left Qualified Code(s): L03.114 - Cellulitis of left upper limb Condition: Stable Prescriptions: New Bactrim DS 800-160 mg tablet 1 tab PO BID 10 Days Qty: 20 RF: 0 No Action buprenorphine-naloxone [Suboxone] 4-1 mg film 1 film SUBLINGUAL BID@,16 RF: 0 duloxetine [Cymbalta] 30 mg capsule,delayed release(DR/EC) 30 mg PO DAILY RF: 0 Discharge Orders: Discharge ED (Routine); Ordered 03/20/21 Ordered By: Lon lForentino Discharge Diet: Regular Discharge Activity: Increase activity as tolerated Patient Instructions: Cellulitis (ED), Opioid Safety Activity Restrictions/Additional Instructions: Follow-up with medical provider as directed Take medications as prescribed. Return to the ER or your medical provider if condition worsens. Please read and understand discharge instructions. Thank you for choosing [facility] for your healthcare needs today. Please realize this is an emergency room and that we are providing you with a medical screening exam and this may not be complete and all inclusive of all the testing and or work up that you may need to determine your ailment or severity of your illness. It is very important that you follow up as instructed or that you return to the Emergency Department should you have concerns or if your condition changes or worsens in any way. Coding Level of Care Code ED Production Cook for Gypsy Fwben Exam Comprehensive
--- NOTE | 2021-03-20 07:54 | XR_ITS ---
WS: [id number] Exam: XR elbow RT min 3V* [id number] Date/Time of Exam: 03/20/2021 8:01 AM Reason For Exam: pt hit elbow on object-swelling and pain No acute fracture or dislocation. No joint effusion demonstrated. An IV cannula is noted in the antec ubital fossa. Normal soft tissues. XR/XR elbow RT min 3V* [id number] IMPRESSION: 1. No fracture or dislocation.
[2021-03-20] MEDS: sodium chloride 0.9% 1,000 ML 999 ML IV ×2 (08:15→09:59)
[2021-03-20] MEDS: morphine 4 mg/mL SDV 1 mL IVP (08:16)
[2021-03-20 08:18] LABS: Basophils # 0.1 10^3/uL (0.0-0.1); Basophils % 0.5 %; Eosinophils % 0.1 %; Hematocrit 42.4 % (42.0-52.0); Hemoglobin 14.4 g/dL (11.7-16.6); Lymphocytes % 5.2 %; Mean Corpuscular Hemoglobin 29.4 pg (28.0-34.0); Mean Corpuscular Volume 86.7 fl (80-94); Mean Platelet Volume 11.3 fL (7.4-10.4); Monocytes # 1.3 10^3/uL (0.2-0.9); Neutrophils # 16.48 10^3/uL (1.8-7.7); Neutrophils % 86.3 %; Nucleated Red Blood Cells % 0 %; Platelet Count 195 10^3/cmm (130-400); Red Blood Count 4.89 10^6/uL (4.1-5.3); White Blood Count 19.1 10^3/uL (4.0-10.0)
[2021-03-20] MEDS: vancomycin 1,500 MG/300 ML PIGGYBACK 200 MG IV (08:26)
[2021-03-20 08:41] LABS: Lactic Sepsis W/Reflex 1.8 mmol/L (0.5-2.2)
[2021-03-20 09:49] LABS: Alanine Aminotransferase 66 U/L (0-41); Albumin Level 3.1 g/dL (3.5-5.2); Alkaline Phosphatase 202 IU/L (40-130); Anion Gap 15.8 (5-19); Aspartate Amino Transferase 37 U/L (0-40); Blood Urea Nitrogen 9 mg/dL (6-20); Calcium 8.3 mg/dL (8.5-10.5); Carbon Dioxide 24 mmol/L (22-29); Chloride 95 mmol/L (98-107); Globulin 3.4 g/dL (1.3-4.6); Glomerular Filtration Rate 154.2 mL/min (90-130); Glucose 122 mg/dL (65-115); Osmolality Calculated 272 mOsm/kg (285-295); Potassium 3.8 mmol/L (3.5-5.1); Sodium 131 mmol/L (136-145); Total Bilirubin 1.3 mg/dL (0.15-1.2); Total Protein 6.5 g/dL (6.6-8.7)
[2021-03-20] MEDS: HYDROcodone-acetaminophen 7.5-325 mg Tablet 1 TAB PO (09:59)
--- NOTE | 2021-03-20 10:30 | CT_ITS ---
WS: [id number] CT LEFT UPPER EXTREMITY WITH CONTRAST. HISTORY: swelling, warmth and tenderness around elbow Technique: All CT scans at [facility] use at least one of these dose optimization techniques: automated exposure control; mA and/or kV adjustment per patient size (includes targeted exams where dose is matched to clinical indication); or iterative reconstruction. DLP: 867.83 mGy.cm Contrast: Omnipaque 350; 95 mL IV. COMPARISON: 03/20/2021 radiographs There is a large amount of soft tissue edema and cellulitis surrounding the upper extremity. Most sig nificant surrounding the distal humerus and elbow. No focal collection to suggest an abscess. The ves sels are all enhancing normally. No thrombus identified or occlusion. There is no joint effusion at t he elbow. No fractures. [place] [id number] IMPRESSION: 1. Extensive cellulitis surrounding the distal humerus and elbow. 2. No fracture or joint effusion. 3. No abscess.
[2021-03-20] MEDS: iohexol 350 mg/mL 100 mL Btl IV (10:55)
--- NOTE | 2021-03-23 11:29 | PC.NURSE ---
reviewed blood culture results. Dr. Maddox reported patient needs to be called and told to return to the ER immediately. This RN called patients numbers that are on the chart. No answer at this time but message left.
--- NOTE | 2021-03-23 11:47 | PC.NURSE ---
Mother returned phone call after receiving the message left on the patients phone. Mother reports that she will bring the patient back to the ER to be seen.
== END 2021-03-20 11:41 | disposition home or self-care (01) ==
PROVIDERS: Emergency Provider Physician Assistant
DX: L03.114 Cellulitis of left upper limb (principal); F17.210 Nicotine dependence, cigarettes, uncomplicated
CPT/HCPCS: 36415; 73080; 73206; 80053; 83605; 85025; 87040; 87186; 87205; 96361; 96365; 96375; 99284; J2270; J3370; J7030; Q9967

== ENCOUNTER 2021-03-23 11:52 | Inpatient (IN) | payer MEDICAID, SELFPAY ==
[2021-03-23] VITALS (8 sets, daily range): BP systolic 103–172; BP diastolic 61–81; PULSE 97–119; RESP 18–26; TEMP 37.3–38.3; O2SAT 95–99; BMI 31.6
--- NOTE | 2021-03-23 12:15 | XR_ITS ---
WS: [id number] Exam: XR chest 1V portable [id number] Date/Time of Exam: 03/23/2021 12:18 PM Reason For Exam: dyspnea/cough Comparison 03/11/2021. Findings: The lungs are clear and fully expanded. Costophrenic angles are sharp. No infiltrates. Bronchovascula r relief appears normal. Cardiac silhouette is unremarkable. Bony elements are intact. XR/XR chest 1V portable [id number] IMPRESSION: Unremarkable chest radiograph.
--- NOTE | 2021-03-23 12:15 | ECG_ITS ---
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 Measurements Intervals [place] Rate: 96 P: 42 ID: [id number] QRS: 70 QRSD: 101 T: 52 QT: 330 QTc: 419 Interpretive Statements SINUS RHYTHM INCOMPLETE RIGHT BUNDLE BRANCH BLOCK [90+ ms QRS DURATION, TERMINAL R IN V1/V2, 40+ ms S IN I/aVL/V4/V5/V6] Compared to ECG 03/11/2021 18:29:00 No significant changes Electronically Signed On 03-24-2021 7:01:41 CDT by Izzy Martell M.D. [id number]
--- NOTE | 2021-03-23 12:30 | USCV_ITS ---
Denys Beverly Age: 36 Gender: M : 1985 Exam Date: 03/23/2021 12:44 Ordering Phys: Maged Maddox DO Technologist: Aminah Erwin Exam Location: [facility] [place] Indication: MRSA acute CHF BP: 172 / 80 HR: 102 Rhythm: Sinus Technical Quality: Adequate MEASUREMENTS (Male / Female) Normal Values 2D ECHO LV Diastolic Diameter PLAX 5.1 cm 4.2 - 5.9 / 3.9 - 5.3 cm LV Systolic Diameter PLAX 3.9 cm IVS Diastolic Thickness 1.1 cm 0.6 - 1.0 / 0.6 - 0.9 cm IVS Systolic Thickness 1.0 cm LVPW Diastolic Thickness 1.2 cm 0.6 - 1.0 / 0.6 - 0.9 cm LVPW Systolic Thickness 1.5 cm LVOT Diameter 2.0 cm LV Ejection Fraction 2D Teich 45.7 % LV Ejection Fraction MOD 2C 61.1 % LV Ejection Fraction 2C AL 60.7 % LA Diameter 3.4 cm LA Width 3.6 cm LA Height 5.2 cm RA Width 4.0 cm RA Height 4.8 cm Aorta at Sinotubular Diameter 3.8 cm DOPPLER AV Peak Velocity 140.0 cm/s LVOT Peak Velocity 146.0 cm/s AV Area Cont Eq vti 3.6 cm squared AV Area Cont Eq pk 3.3 cm squared MV Peak Velocity 118.0 cm/s MV Area PHT 3.0 cm squared Mitral E to A Ratio 1.1 MV E' Velocity 54.5 cm/s Mitral E to MV E' Ratio 10.0 Mitral E to LV E' Lateral Ratio 6.8 Mitral E to LV E' Septal Ratio 18.9 TR Peak Velocity 98.0 cm/s TR Peak Gradient 3.8 mmHg Right Atrial Pressure 3.0 mmHg Pulmonary Artery Systolic Pressu 6.8 mmHg PV Peak Velocity 104.0 cm/s RV Acceleration Time 0.1 s RV Ejection Time 0.3 s RV AcT/ET 0.4 FINDINGS Left Ventricle Normal left ventricular size. LV systolic function is normal with EF of 55-60%. No regional wall motion abnormalities. Normal diastolic filling pattern. Right Ventricle The right ventricle is normal in size and function. Right Atrium The right atrium is normal in size. Left Atrium The left atrium is normal in size. Mitral Valve Structurally normal mitral valve without significant stenosis or prolapse. There is mild mitral regurgitation. Aortic Valve Grossly normal without stenosis. There is no aortic regurgitation. Tricuspid Valve Not well visualized. No significant stenosis or regurgitation. Insufficient TR jet to calculate RVSP Pulmonic Valve Not well visualized. There is no pulmonic regurgitation. Pericardium Normal pericardium without effusion. Aorta Ascending aorta is mildly dilated CONCLUSIONS Limited quality echocardiogram because of poor ultrasonic windows LV systolic function is normal with EF of 55-60% Diastolic functino is normal Mild mitral regurgitation No vegetations seen however given limited quality study, can not complately rule out. No comparison studies are available Damien Mustafa MD (Electronically Signed) Final Date: 23 March 2021 18:03 S
--- NOTE | 2021-03-23 12:32 | ED_ITS ---
HPI - General Adult General: Chief complaint: General Medical Stated complaint: pcp sent vincent Time Seen by Provider: 03/23/21 12:15 History of Present Illness: HPI narrative: The patient returns today after being notified of a positive MRSA blood culture which was cultured at a previous visit to the ER earlier this week. The patient states shortness of breath appearing the last 24 hours and is notably short of breath on examination. The patient states that both sites of infection the antecubital fossa have extended since previous visit. The patient states he has not checked his temperature and is unsure of he has had a fever. The patient denies chest pain. Onset (ago): day(s) Location: upper extremity (Bilateral antecubital fossa) Radiation: non-radiation Severity: severe Severity scale (1-10): 8 Pain Consistency: constant Relieving factors: none Exacerbating factors: other (Physical touch) Associated symptoms: Reports dyspnea and malaise Review of Systems Const: Reports: malaise Card: Reports: orthopnea Resp: Reports: dyspnea Musc: Reports: extremity pain, extremity swelling, joint pain, joint swelling, joint redness, joint warmth, joint stiffness and limited range of motion PFSH ED PFSH: Medical History IV drug abuse Smoking addiction Surgical History Abscess of hand MRSA S/P patch closure of atrial septal defect Family History Mother Non-alcoholic cirrhosis Social History Smoking and tobacco status: current every day smoker Alcohol intake: never Desire information about substance/drug rehabilitation?: Yes Counseling given: Yes Physical Exam Const: COMMON NORMALS: no acute distress GENERAL APPEARANCE: cooperative and comfortable ORIENTATION/CONSCIOUSNESS: Yes awake, Yes oriented to person, Yes oriented to place and Yes oriented to time HENMT: COMMON NORMALS: normocephalic and atraumatic HEAD & SCALP: no rmocephalic and atraumatic Neck/C-Spine: COMMON NORMALS: no JVD Chest: CHEST: Yes Surgical scars present (Chest) (Sternal scarring from previous open heart surgery) Resp: COMMON NORMALS: clear to auscultation bilaterally EFFORT & INSPECTION: Yes tachypneic and Yes other (Conversational dyspnea) AUSCULTATION: clear to auscultation bilaterally Cardio: COMMON NORMALS: no JVD, regular rate, regular rhythm and No murmurs present (Cardio) RATE: regular rate RHYTHM: regular rhythm GI: COMMON NORMALS: Soft to palpation PALPATION: Yes Soft to palpation, No Tenderness to palpation present (GI) and No Guarding due to palpation present (GI) Extremity: RIGHT UPPER EXTREMITY: Yes elbow joint (Swelling and erythema ) Right elbow: Yes ROM (Decreased) LEFT UPPER EXTREMITY: Yes elbow joint (Swelling and erythema) Left elbow: Yes ROM (Decreased) Neuro: SENSORIUM/ORIENTATION: Yes oriented to person, Yes oriented to place and Yes oriented to time Course Vital Signs: Vital signs: Vital Signs Temperature 102.1 F H 03/25/21 20:11 Pulse Rate 110 H 03/25/21 20:11 Respiratory Rate 24 H 03/25/21 20:11 Blood Pressure 160/91 03/25/21 20:11 Pulse Oximetry 97 03/25/21 20:11 MDM - General Adult MDM Narrative: Medical decision making narrative: Patient had positive MRSA blood cultures the septic at this point. Most likely sepsis in his arms from IV drug use chest x-ray was unremarkable labs reviewed discussed imaging labs with the patient discussed with hospitalist will admit with IV antibiotics. Lab Data: Labs: Lab Results 03/23/21 03/23/21 03/23/21 12:35 12:35 12:35 WBC 19.0 10^3/uL H 10 ^3/uL (4.0-10.0) RBC 3.88 10^6/uL L 10 ^6/uL (4.1-5.3) Hgb 11.4 g/dL L g/dL (11.7-16.6) Hct 33.2 % L % (42.0-52.0) MCV 85.6 fl fl (80-94) MCH 29.4 pg pg (28.0-34.0) MCHC 34.3 g/dL g/dL (30.0-36.0) RDW 15.0 % % (12.1-15.1) Plt Count 281 10^3/cmm 10^3 /cmm (130-400) MPV 11.3 fL H fL (7.4-10.4) Neut % (Auto) 84.4 % % Lymph % (Auto) 7.5 % % [place] % (Auto) 4.6 % % Eos % (Auto) 0.5 % % Baso % (Auto) 0.5 % % Neut # (Auto) 16.08 10^3/uL H 1 0^3/uL (1.8-7.7) Lymph # (Auto) 1.4 10^3/uL 10^3/ uL (0.8-4.8) [place] # (Auto) 0.9 10^3/uL 10^3/ uL (0.2-0.9) Eos # (Auto) 0.1 10^3/uL 10^3/ uL (0.0-0.8) Baso # (Auto) 0.1 10^3/uL 10^3/ uL (0.0-0.1) Nucleated RBC % (a uto) 0 % % Nucleated RBCs # 0.0 /100WBC /100W BC Sodium 127 mmol/L L mmol /L (136-145) Potassium 4.1 mmol/L mmol/L (3.5-5.1) Chloride 93 mmol/L L mmol/ L (98-107) Carbon Dioxide 23 mmol/L mmol/L (22-29) Anion Gap 15.1 (5-19) BUN 13 mg/dL mg/dL (6-20) Creatinine 0.7 mg/dL mg/dL (0.7-1.2) GFR Calculation 129.1 mL/min mL/m in (90-130) Glucose 120 mg/dL H mg/dL (65-115) Calculated Osmolal ity 265 mOsm/kg L mOs m/kg (285-295) Lactic Acid 1.6 mmol/L mmol/L (0.5-2.2) Calcium 8.8 mg/dL mg/dL (8.5-10.5) Total Bilirubin 0.5 mg/dL mg/dL (0.15-1.2) AST 25 U/L U/L (0-40) ALT 35 U/L U/L (0-41) Alkaline Phosphata se 267 IU/L H IU/L (40-130) Creatine Kinase 45 U/L U/L (39-308) C-Reactive Protein NT-Pro-B Natriuret Pep 240 pg/mL H pg/mL (0-125) Total Protein 6.6 g/dL g/dL (6.6-8.7) Albumin 2.6 g/dL L g/dL (3.5-5.2) Globulin 4.0 g/dL g/dL (1.3-4.6) Urine Color Urine Appearance Urine pH Ur Specific Gravit y Urine Protein Urine Glucose (UA) Urine Ketones Urine Blood Urine Nitrate Urine Bilirubin Prot Sulfosalicyli c Acd Urine Urobilinogen Ur Leukocyte [place] ase Urine RBC Urine WBC Ur Squamous Epith Cells Amorphous Sediment Urine Bacteria Hepatitis A IgM Ab Hep Bs Antigen Hep B Core IgM Ab Hepatitis C Antibo dy HIV 1&2 Ab & HIV 1 Ag HIV 1&2 Antibody 03/23/21 03/23/21 03/23/21 12:35 12:35 12:35 WBC RBC Hgb Hct MCV MCH MCHC RDW Plt Count MPV Neut % (Auto) Lymph % (Auto) [place] % (Auto) Eos % (Auto) Baso % (Auto) Neut # (Auto) Lymph # (Auto) [place] # (Auto) Eos # (Auto) Baso # (Auto) Nucleated RBC % (a uto) Nucleated RBCs # Sodium Potassium Chloride Carbon Dioxide Anion Gap BUN Creatinine GFR Calculation Glucose Calculated Osmolal ity Lactic Acid Calcium Total Bilirubin AST ALT Alkaline Phosphata se Creatine Kinase C-Reactive Protein 206.0 mg/L H mg/L (0.0-4.9) NT-Pro-B Natriuret Pep Total Protein Albumin Globulin Urine Color Urine Appearance Urine pH Ur Specific Gravit y Urine Protein Urine Glucose (UA) Urine Ketones Urine Blood Urine Nitrate Urine Bilirubin Prot Sulfosalicyli c Acd Urine Urobilinogen Ur Leukocyte [place] ase Urine RBC Urine WBC Ur Squamous Epith Cells Amorphous Sediment Urine Bacteria Hepatitis A IgM Ab Non-reactive (Nonreactive) Hep Bs Antigen Non-reactive (Nonreactive) Hep B Core IgM Ab Non-reactive (Nonreactive) Hepatitis C Antibo dy Reactive H (Nonreactive) HIV 1&2 Ab & HIV 1 Ag Non-reactive (Non-Reactiv) HIV 1&2 Antibody Non-reactive (Non-Reactiv) 03/23/21 14:18 WBC RBC Hgb Hct MCV MCH MCHC RDW Plt Count MPV Neut % (Auto) Lymph % (Auto) [place] % (Auto) Eos % (Auto) Baso % (Auto) Neut # (Auto) Lymph # (Auto) [place] # (Auto) Eos # (Auto) Baso # (Auto) Nucleated RBC % (a uto) Nucleated RBCs # Sodium Potassium Chloride Carbon Dioxide Anion Gap BUN Creatinine GFR Calculation Glucose Calculated Osmolal ity Lactic Acid Calcium Total Bilirubin AST ALT Alkaline Phosphata se Creatine Kinase C-Reactive Protein NT-Pro-B Natriuret Pep Total Protein Albumin Globulin Urine Color Yellow (Yellow) Urine Appearance Clear (CLEAR) Urine pH 8 H (5-7) Ur Specific Gravit y 1.010 (1.005-1.030) Urine Protein Neg (Negative) Urine Glucose (UA) Norm (Normal) Urine Ketones Negative (Negative) Urine Blood 2+ H (Negative) Urine Nitrate Negative (Negative) Urine Bilirubin Neg (Negative) Prot Sulfosalicyli c Acd Negative (Negative) Urine Urobilinogen Norm mg/dL mg/dL (Negative) Ur Leukocyte [place] ase Negative (Negative) Urine RBC 0-4 /hpf H /hpf (0-2) Urine WBC 5-10 /hpf H /hpf (0-5) Ur Squamous Epith Cells 5-10 /hpf H /hpf (0-5) Amorphous Sediment Not Reportable Urine Bacteria Trace /hpf /hpf (NONE) Hepatitis A IgM Ab Hep Bs Antigen Hep B Core IgM Ab Hepatitis C Antibo dy HIV 1&2 Ab & HIV 1 Ag HIV 1&2 Antibody Discharge Plan Discharge Patient Disposition: Admitted As Inpatient Admit Provider: Casimiro Hewitt Clinical Impression: Cellulitis of arm, right, MRSA bacteremia, Cellulitis of arm, left Coding Level of 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
[2021-03-23 12:46] LABS: Basophils # 0.1 10^3/uL (0.0-0.1); Basophils % 0.5 %; Eosinophils # 0.1 10^3/uL (0.0-0.8); Eosinophils % 0.5 %; Hematocrit 33.2 % (42.0-52.0); Hemoglobin 11.4 g/dL (11.7-16.6); Lymphocytes # 1.4 10^3/uL (0.8-4.8); Lymphocytes % 7.5 %; Mean Corpuscular HGB Conc 34.3 g/dL (30.0-36.0); Mean Corpuscular Hemoglobin 29.4 pg (28.0-34.0); Mean Corpuscular Volume 85.6 fl (80-94); Mean Platelet Volume 11.3 fL (7.4-10.4); Monocytes # 0.9 10^3/uL (0.2-0.9); Monocytes % 4.6 %; Neutrophils # 16.08 10^3/uL (1.8-7.7); Neutrophils % 84.4 %; Nucleated Red Blood Cells % 0 %; Platelet Count 281 10^3/cmm (130-400); Red Blood Count 3.88 10^6/uL (4.1-5.3)
[2021-03-23] MEDS: vancomycin 1,000 MG in sodium chloride 0.9% 250 ML 250 MG IV (12:48)
[2021-03-23] MEDS: sodium chloride 0.9% 1,000 ML 999 ML IV (12:54)
[2021-03-23 13:02] LABS: Lactic Sepsis W/Reflex 1.6 mmol/L (0.5-2.2)
[2021-03-23] MEDS: acetaminophen 500 mg Tablet 1000 MG PO (13:17)
[2021-03-23] MEDS: morphine 4 mg/mL SDV 1 mL IVP (13:17)
[2021-03-23 13:22] LABS: Alanine Aminotransferase 35 U/L (0-41); Albumin Level 2.6 g/dL (3.5-5.2); Alkaline Phosphatase 267 IU/L (40-130); Anion Gap 15.1 (5-19); Aspartate Amino Transferase 25 U/L (0-40); Blood Urea Nitrogen 13 mg/dL (6-20); Calcium 8.8 mg/dL (8.5-10.5); Carbon Dioxide 23 mmol/L (22-29); Chloride 93 mmol/L (98-107); Creatine Phosphokinase 45 U/L (39-308); Glomerular Filtration Rate 129.1 mL/min (90-130); Glucose 120 mg/dL (65-115); NT Pro B Type Natriuretic Pept 240 pg/mL (0-125); Osmolality Calculated 265 mOsm/kg (285-295); Potassium 4.1 mmol/L (3.5-5.1); Sodium 127 mmol/L (136-145); Total Bilirubin 0.5 mg/dL (0.15-1.2); Total Protein 6.6 g/dL (6.6-8.7)
[2021-03-23 15:12] LABS: Blood Urine 2+ (Negative); Glucose Urine UA Norm (Normal); Ketones Urine Negative (Negative); Protein Urine Neg (Negative); Urine Appearance Clear (CLEAR); Urine Color Yellow (Yellow); pH Urine 8 (5-7)
[2021-03-23 15:13] LABS: Add Urine Microscopic? YES; Bacteria Urine TRACE /hpf; Bilirubin Urine Neg (Negative); Leukocyte Esterase Urine Negative (Negative); Nitrate Urine Negative (Negative); RBC Urine 0-4 /hpf (0-2); Sulfosalicylic Acid Urine Negative (Negative); Urobilinogen Urine Norm (Negative)
[2021-03-23 15:14] LABS: Add Urine Culture? No
--- NOTE | 2021-03-23 17:32 | P.HP_ITS ---
Providers/Chief Complaint Chief Complaint: pcp sent vincent History of Present Illness Pleasant 36-year-old gentleman with IV drug abuse of fentanyl, heroin, past history of methamphetamine use although denies recent use, history of MRSA hand infection was evaluated in ER on 03/20 due to bilateral elbow swelling after bumping into car side view mirror, was assessed by CT at that time with finding of soft tissue swelling and cellulitis, without finding of joint effusion, was discharged with Bactrim, returns due to malaise, generalized weakness, persistent swelling and pain in bilateral forearms, worse on the right with a large hard knot in the medial proximal forearm, overlying soft tissue edema of proximal forearm distal upper arm. He states he is feeling achy all over. Reports having some pain along all of his back as well. Previously was having mild headache. Not currently. After the recent visit blood cultures tested positive for MRSA, so he was called back to the hospital. He is accompanied by his mom. In the ER he is febrile with tachycardia and leukocytosis. Malaise. Repeat blood cultures were collected. He received vancomycin, bolus of IV fluid. Chest x-ray is unremarkable. TTE was obtained. Orthopedic surgery consulted. He reports last injected drugs several days ago. He is planning on seeking rehabilitation. Review of Systems Const: Reports: fever(s), chills, body aches, malaise and other (Previously headache which has resolved) Eyes: Denies: change in vision, photophobia or eye redness ENMT: Denies: throat pain, oral sores or ear or mastoid pain Card: Denies: chest pain, edema, pre-syncope or dyspnea on exertion Resp: Denies: dyspnea, productive cough, change in phlegm color or hemoptysis GI: Denies: abdominal pain, nausea, vomiting, diarrhea, constipation, hemato chezia or melena : Denies: flank pain, difficulty urinating, urinary frequency or hematuria Musc: Reports: back pain, extremity pain (Pain L forearm, dist biceps on PRM. No wrist, shoulder PRM pain. Sim on R.), extremity swelling (Both arms, L>R, pain around elbow joint, large lump in med prox forearm.) and other (Some swelling around L ankle) Skin/Breast: Denies: rash, sores or new lesions Neuro: Reports: headache(s); Denies: numbness in extremities, weakness in extremities, dizziness, confusion or seizure-like activity Endo: Denies: polyuria or polydipsia Suleiman/Lymph: Denies: easy bleeding or purpura All/Imm: Denies: urticaria, throat swelling or tongue swelling Medications/Allergies Home Medications Medication Instructions Recorded Confirmed Last Taken Type sulfamethoxazole-trimethoprim 1 tab PO BID 10 Days #20 tab 03/20/21 03/23/21 03/23/21 05:00 Rx [Bactrim DS] hydrocodone-acetaminophen 1 tab PO Q6H PRN 03/23/21 03/23/21 03/22/21 History ibuprofen 400 mg PO Q4H PRN 03/23/21 03/23/21 03/23/21 08:00 History Allergies Allergy/AdvReac Type Severity Reaction Status Date / Time No Known Allergies Allergy Verified 03/23/21 13:08 PFSH Acute PFSH: Medical History IV drug abuse Smoking addiction Surgical History Abscess of hand MRSA S/P patch closure of atrial septal defect Family History Mother Non-alcoholic cirrhosis Social History Smoking and tobacco status: current every day smoker Alcohol intake: never Substance/Drug Use: current Substance/Drug use type: Heroin and Other Other substance/drug use details: Fentanyl Desire information about substance/drug rehabilitation?: Yes Counseling given: Yes Vitals/I&O/Wt Last Vital Signs Temp 99.1 F 03/23/21 14:06 Pulse 97 03/23/21 15:10 Resp 20 H 03/23/21 15:10 BP 103/61 03/23/21 15:10 Pulse Ox 99 03/23/21 15:10 Weight last 48 hrs Weight 108.862 kg Physical Exam Narrative: EXAM NARRATIVE: Mother at bedside. Const: COMMON NORMALS: no acute distress and patient oriented x3 GENERAL APPEARANCE: ill appearing NUTRITIONAL APPEARANCE: obese HENMT: COMMON NORMALS: oropharynx normal Neck/C-Spine: COMMON NORMALS: no JVD Resp: COMMON NORMALS: normal respiratory effort and clear to auscultation bilaterally AUSCULTATION: clear to auscultation bilaterally Cardio: COMMON NORMALS: no JVD, regular rhythm, S1 normal heart sound present, S2 normal heart sound present and No murmurs present (Cardio) RHYTHM: regular rhythm HEART SOUNDS: S1 normal heart sound present and S2 normal heart sound present GI: COMMON NORMALS: Normal to inspection, nondistended, normoactive bowel sounds present, Soft to palpation and non-tender PALPATION: Yes Soft to palpation Extremity: COMMON NORMALS: no joint enlargement and no pedal edema RIGHT UPPER EXTREMITY: Yes shoulder joint (No pain on PRM), Yes wrist (No pain on PRM) and Yes hand & digits (No pain on PRM) LEFT UPPER EXTREMITY: Yes shoulder joint (No pain on PRM), Yes lower arm (Swelling arms L>R, pain around elbow joint, large lump in med prox forearm.), Yes wrist (No pain on PRM) and Yes hand & digits (No pain on PRM) LEFT LOWER EXTREMITY: Yes ankle joint (No pain on PRM, I cannot appreciate much swelling, no erythema) Neuro: COMMON NORMALS: patient oriented x3 and moves all extremities (Spontaneously. Reduced ROM in elbows due to surrounding swelling. Hands.) SENSORY EXAM: Yes extremities (Symmetrical. Denies sensory loss.) Skin: COMMON NORMALS: no rashes or lesions noted GENERAL SKIN EXAM: no rashes or lesions noted RASHES: rashes noted (Faint erythema over swelling soft tissues proximal and distal to elbows.) OTHER: I do not see obvious signs of septic embolization. Data : 03/23/21 12:35 03/23/21 12:35 A&P Assessment and plan (1) MRSA bacteremia: Discussed with him and his mother regarding MRSA bacteremia, sepsis secondary to IV drug use, cellulitis. Cannot exclude possible abscess of left forearm with localized swelling. Appreciate orthopedic assessment and expertise in excluding possibility of compartment syndrome, septic arthritis. Discussed with him and his mother continuation of antibiotic therapy, as well as closer assessment given multifocal symptoms for possible dissemination of infection. Discussed risk of possible endocarditis especially given history of cardiac procedure in the past with patch repair of ASD. TTE had been done in the ER. Follow-up results. Discussed if unremarkable will need JULISA. Discussed will need additional assessment given headache with MRI brain, given back pain with MRI spine, will request also MRI of left elbow, left ankle. Obtain CRP, ESR. Discussed with him and his mother will require IV antibiotics, duration of which is to be determined depending on further investigations. Case management consultation. Status: Acute (2) Sepsis: With fever 101 Fahrenheit, leukocytosis 19,000, sinus tachycardia 97 bpm. Secondary to MRSA following IV drug use, cellulitis of arms. Assess for secondary foci of infection as above. Continue vancomycin. Lactic acid normal. Status: Acute (3) Headache: As above Status: Acute (4) Back pain: As above. No sensory levels. Moving all extremities spontaneously. Status: Acute (5) Localized swelling of left forearm: As above. Status: Acute (6) Cellulitis of arm, left: As above. Additionally assess for DVT with venous duplex. Status: Acute (7) Cellulitis of arm, right: As above. Additionally assess for DVT with venous duplex. Status: Acute (8) Left ankle swelling: As above. Status: Acute (9) IV drug abuse: He states he plans to seek rehabilitation. Encourage cessation, discussed current condition and concerns as relating to IV drug use, risk of other complications. Will request case management to assist him with options for rehabilitation. Status: Acute (10) Smoking addiction: We discussed smoking cessation for 5 minutes, he understands that he should quit. He is agreeable to nicotine replacement and request for patches. Discussed with him we will also add nicotine lozenges as needed for cravings. Status: Acute (11) Hyponatremia: Possibly hypovolemic with poor oral intake. Received IV fluid bolus in ER. Continue regular diet. Recheck sodium. Status: Acute (12) Abnormal urinalysis: With 5-10 squamous patella cells. Recheck. Status: Acute Additional A&P Information History of patch repair of patch repair of ASD in childhood Past history of MRSA infection of right hand Attestations Medical Necessity Statement*: Admission of over 2 midnights is going to be needed for assessment management of MRSA bacteremia with sepsis, in the setting of IV drug use, bilateral arm cellulitis, and assessment for secondary foci of infection, possible endocarditis with history of ASD and cardiac procedure. 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
--- NOTE | 2021-03-23 17:39 | P.CONIM_ITS ---
Providers/Reason For Consult Consulting Physician/Specialty*: Pipo Aguila MD; orthopedic surgery Reason for Consult*: Bilateral forearm cellulitis and swelling, rule out compartment syndrome History of Present Illness History of Present Illness Denys Beverly is a 36 year old male with a history of IV drug abuse. He was last seen in our emergency room on complaining of bilateral elbow swelling and pain. He was discharged on Bactrim but returned today with continued complaints of malaise weakness and persistent swelling and pain in his forearms. Meds/Allergies Home Medications and Allergies Home Medications Medication Instructions Recorded Confirmed Last Taken Type sulfamethoxazole-trimethoprim 1 tab PO BID 10 Days #20 tab 03/20/21 03/23/21 03/23/21 05:00 Rx [Bactrim DS] hydrocodone-acetaminophen 1 tab PO Q6H PRN 03/23/21 03/23/21 03/22/21 History ibuprofen 400 mg PO Q4H PRN 03/23/21 03/23/21 03/23/21 08:00 History Allergies Allergy/AdvReac Type Severity Reaction Status Date / Time No Known Allergies Allergy Verified 03/23/21 13:08 PFSH Acute PFSH: Medical History IV drug abuse Smoking addiction Surgical History Abscess of hand MRSA S/P patch closure of atrial septal defect Family History Mother Non-alcoholic cirrhosis Social History Smoking and tobacco status: current every day smoker Alcohol intake: never Substance/Drug Use: current Substance/Drug use type: Heroin and Other Other substance/drug use details: Fentanyl Desire information about substance/drug rehabilitation?: Yes Counseling given: Yes Vitals/I&O/Wt Last Vital Signs Temp 99.1 F 03/23/21 14:06 Pulse 97 03/23/21 15:10 Resp 20 H 03/23/21 15:10 BP 103/61 03/23/21 15:10 Pulse Ox 99 03/23/21 15:10 Weight last 48 hrs Weight 240 lb Physical Exam Narrative: EXAM NARRATIVE: Patient is supine in his stretcher. He answers questions appropriately. He appears oriented to person place and time. Left upper extremity: He lacks approximately 30 degrees extension of the elbow and can flex to 150 degrees. He can pronate and supinate 70 degrees in each direction He has areas of firmness over his distal anterior medial arm but the more proximal arm is soft. There is erythema extending from approximately the proximal third of the arm distally to the proximal third of the forearm medially. He can actively flex and extend his elbow with some restriction in range of motion. He can reach a complete clenched fist as well as extend and oppose and abduct his thumb. His sensation is intact light touch. Right upper extremity: He lacks approximately 30 degrees extension of the elbow and can flex to 150 degrees. He can pronate and supinate 70 degrees in each direction He has firm swelling over his anterior medial elbow with erythema from the medial arm to medial forearm. an actively flex and extend his elbow with some restriction in range of motion. He can reach a complete clenched fist as well as extend and oppose and abduct his thumb. His sensation is intact light touch. Left ankle: He has erythema over the medial ankle. There is no fluctuance or induration. He can dorsiflex his ankle 30 degrees and plantar flex 30 degrees A&P Assessment and plan (1) Cellulitis of left ankle: Status: Acute (2) Cellulitis of arm, right: Status: Acute (3) Cellulitis of arm, left: I can see nothing to suggest compartment syndrome. The patient certainly has cellulitis in both upper extremities and his left ankle. I cannot completely exclude the possibility of abscesses in his arms. I think the best place to begin will be to get him admitted to the hospital and begin IV antibiotics. We can follow his clinical response. If induration and swelling continues to localize in the arms we could consider MRI imaging. This is a completion of a evaluation and history was performed on 03/23/2021 at 5:30 PM. 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
[2021-03-23 19:32] LABS: HIV 1 & 2 Antibody Non-Reactive (Non-Reactiv); HIV 1 & 2 Antigen Non-Reactive (Non-Reactiv)
[2021-03-23] MEDS: lactated ringers 1,000 ML 150 ML IV (20:19)
[2021-03-23] MEDS: vancomycin 1,500 MG/300 ML PIGGYBACK 200 MG IV (20:26)
[2021-03-23] MEDS: morphine 4 mg/mL SDV 1 mL 2 MG IVP (20:36)
[2021-03-23 21:01] LABS: Hepatitis A Antibody IgM Non-Reactive (Nonreactive); Hepatitis B Core IgM Non-Reactive (Nonreactive); Hepatitis B Surface Antigen Non-Reactive (Nonreactive); Hepatitis C Virus Antibody Reactive (Nonreactive)
[2021-03-23 23:17] LABS: Charge for UA Resulting for Rev
[2021-03-23] MEDS: nicotine 4 mg lozenge MUCOUS MEM (23:19)
[2021-03-23 23:41] LABS: Add Urine Microscopic? YES; Bilirubin Urine Neg (Negative); Blood Urine 2+ (Negative); Glucose Urine UA Norm (Normal); Ketones Urine Negative (Negative); Leukocyte Esterase Urine Negative (Negative); Nitrate Urine Negative (Negative); Protein Urine Neg (Negative); Urine Appearance Clear (CLEAR); Urine Color Yellow (Yellow); Urobilinogen Urine Norm (Negative); pH Urine 5 (5-7)
[2021-03-24] VITALS (10 sets, daily range): BP systolic 115–149; BP diastolic 51–77; PULSE 95–106; RESP 14–22; TEMP 36.8–39.5; O2SAT 95–97
[2021-03-24] MEDS: acetaminophen 325 mg Tablet 650 MG PO ×2 (00:30→16:03)
[2021-03-24] MEDS: morphine 4 mg/mL SDV 1 mL 2 MG IVP ×5 (02:22→23:32)
--- NOTE | 2021-03-24 02:45 | PC.NURSE ---
It was reported to this nurse by the charge nurse that the patient had a 103 temp, charge stated she was giving him tylenol at 0003, this nurse had TELEPHONE SERVICES SALES REPRESENTATIVE recheck temp at 0130 and it was 98.7.
[2021-03-24] MEDS: lactated ringers 1,000 ML 150 ML IV ×3 (03:08→20:18)
[2021-03-24] MEDS: vancomycin 1,500 MG/300 ML PIGGYBACK 200 MG IV ×3 (04:05→19:32)
[2021-03-24 06:10] LABS: Basophils # 0.1 10^3/uL (0.0-0.1); Basophils % 0.3 %; Eosinophils % 0.3 %; Hematocrit 31.9 % (42.0-52.0); Hemoglobin 10.7 g/dL (11.7-16.6); Lymphocytes # 1.6 10^3/uL (0.8-4.8); Lymphocytes % 10.1 %; Mean Corpuscular HGB Conc 33.5 g/dL (30.0-36.0); Mean Corpuscular Hemoglobin 29.4 pg (28.0-34.0); Mean Corpuscular Volume 87.6 fl (80-94); Mean Platelet Volume 11.3 fL (7.4-10.4); Monocytes # 1.2 10^3/uL (0.2-0.9); Monocytes % 7.9 %; Neutrophils # 11.83 10^3/uL (1.8-7.7); Neutrophils % 76.4 %; Nucleated Red Blood Cells % 0 %; Platelet Count 224 10^3/cmm (130-400); Red Blood Count 3.64 10^6/uL (4.1-5.3); Red Cell Distribution Width 15.1 % (12.1-15.1); White Blood Count 15.5 10^3/uL (4.0-10.0)
[2021-03-24 06:19] LABS: Alanine Aminotransferase 30 U/L (0-41); Albumin Level 2.4 g/dL (3.5-5.2); Alkaline Phosphatase 242 IU/L (40-130); Aspartate Amino Transferase 21 U/L (0-40); Blood Urea Nitrogen 12 mg/dL (6-20); Carbon Dioxide 22 mmol/L (22-29); Chloride 100 mmol/L (98-107); Globulin 3.1 g/dL (1.3-4.6); Glomerular Filtration Rate 129.1 mL/min (90-130); Glucose 87 mg/dL (65-115); Osmolality Calculated 277 mOsm/kg (285-295); Sodium 134 mmol/L (136-145); Total Bilirubin 0.6 mg/dL (0.15-1.2); Total Protein 5.5 g/dL (6.6-8.7)
[2021-03-24 06:22] LABS: Anion Gap 16.2 (5-19); Potassium 4.2 mmol/L (3.5-5.1)
--- NOTE | 2021-03-24 07:23 | P.PN_ITS ---
Subjective Subjective: Interval history: Patient complains of back pain and persistent left arm pain. Vitals/I&O/Wt Last Vital Signs Temp 100.2 F H 03/24/21 04:00 Pulse 105 H 03/24/21 04:00 Resp 19 H 03/24/21 04:00 BP 146/71 03/24/21 04:00 Pulse Ox 96 03/24/21 04:00 03/23/21 03/24/21 03/24/21 22:59 06:59 14:59 Intake Total 300 / 300 1540 / 1840 Output Total 300 / 300 600 / 900 Balance 0 / 0 940 / 940 Weight last 48 hrs Weight 240 lb Physical Exam Narrative: EXAM NARRATIVE: Right upper extremity: Swelling much improved. Much less erythema medial arm Left upper extremity: Continued fullness and erythema over anterior medial forearm. This could represent a deep abscess. I would recommend MRI. I understand that the patient has multiple other potential sources of infection including his spine and cardiac evaluation will also be involved. I do not think that evaluation arm is emergent knee but is something we will certainly need to address in the next few days. Left ankle: Erythema and swelling resolved Data : 03/24/21 05:34 03/24/21 05:34 Micro: Microbiology 03/23/21 12:48 Blood Culture - Preliminary Blood SPECIMEN COLLECTED 03/23/21 12:48 Blood Culture - Preliminary Blood SPECIMEN COLLECTED A&P Assessment and plan (1) Cellulitis of arm, left: Continued swelling induration in anterior medial forearm is worrisome for abscess. Would recommend diagnostic imaging with MRI. Status: Acute (2) Cellulitis of arm, right: Swelling and erythema much improved. Clinical response is consistent with cellulitis. Feel medical management with appropriate antibiotics should be the current course now. Status: Acute (3) Cellulitis of left ankle: Erythema and swelling much improved. I can agree with appropriate antibiotics and continued clinical observation for ankle. Status: Acute Attestations 2 Medical Necessity Statement*: As per medicine. Coding Level of Care Code Acute General Medical Practitioner for [employer] Claros Diagnoses Cellulitis of arm, left L03.114 Cellulitis of arm, right L03.113 Cellulitis of left ankle L03.116
[2021-03-24] MEDS: nicotine 21 mg Patch 1 PATCH TRANSDERMA ×2 (08:16→13:50)
--- NOTE | 2021-03-24 10:19 | PC.NURSE ---
Received a call from Wilmer, protection analyst [employer] for [employer] and she states that patient will not be able to receive all MRIs ordered today d/t being unable to receive contrast for that many areas at once. I called and spoke with Dr. Hewitt and he would like to proceed with using both contrast and no contrast for all tests and would prefer the head and cervical MRI should take precedence today. I called back to Wilmer with [facility] and informed her of this and she states that they will do head and cervical today, then thoracic and lumbar on 03/25 at 1100, then left elbow on 03/26 at 1200. I inquired as to if we could use that as definitive appointment times and she states that yes, they do their own scheduling after hours and on the weekend and that we would just need to arrange transportation and ensure a nurse is able to go with the patient to the tests at that time. I called [facility] and scheduled transport times for 03/25 and 03/26 and informed Ginger Rangel LPN and Bharath Leone heel trimmer Nurse.
[2021-03-24] MEDS: gadobenate dimeglumine 20 mL vial IV (10:45)
--- NOTE | 2021-03-24 14:51 | PC.CHAP ---
Pastoral Care Encounter/Spiritual Assessment Type of Contact [] Declined net maker visit [] Patient/Family/Request visit [] Outpatient visit [] Follow-up visit [] Physician referral [] Code/Alert [] Routine visit [] Staff referral [] Actively dying [] Patient sleeping [] Family support [] [] Out of room [] Palliative care [] [] Receiving care in room [] Pre-surgical visit [] Trauma [] Long length of stay [] ICU visit [xx] Other: ISOLATION Relational/Emotional Strength [] Patient feels connected with others/family/visitors/staff [] Distress [] Loneliness/isolation [] Abandonment Spirituality of Patient [] Person of Niecy [] Attends Uatsdin of their Niecy [] Believes in Prayer [] Reads Bible or Sabianist materials [] There are Spiritual issues to be addressed Racing Mechanic Interventions [] Prayer [] Active listening [] Non-anxious presence [] Spiritual/emotional support [] Crisis/trauma care [] Spiritual counseling [] Bereavement support [] Provided bereavement packet [] Provided Bible/devotional materials [] Provided toy/stuffed animal, coloring book to patient or family member [] Provided Communion [] Anointing/[place] [] Salvation [] Completed spiritual assessment [] Other: Impact on Illness or Injury [] Angry [] Fearful [] Anxious [] Often cries [] Exhaustion [] Unable to work [] Unable to attend jain [] Unable to walk/stand [] Unable to read [] Unable to drive [] Unable to eat/drink [] Unable to sleep [] Unable to be with family [] Patient intubated [] Other: Summary Time spent with patient
[2021-03-24] MEDS: nicotine 4 mg lozenge MUCOUS MEM (16:16)
--- NOTE | 2021-03-24 16:30 | P.PN_ITS ---
Subjective Subjective: Interval history: Still malaised, although feeling overall little better than yesterday. No headache. Pain in entire back. Left arm. Reports nicotine craving, nicotine patch was taken off during MRI. Request for now. Also request for medication to help him sleep at night. Discussed with him trazodone. Vitals/I&O/Wt Last Vital Signs Temp 101.8 F H 03/24/21 15:56 Pulse 105 H 03/24/21 15:56 Resp 20 H 03/24/21 15:56 BP 130/57 03/24/21 15:56 Pulse Ox 96 03/24/21 15:56 03/24/21 03/24/21 03/24/21 06:59 14:59 22:59 Intake Total 1540 / 1840 1667.5 / 1667.5 Output Total 600 / 900 Balance 940 / 940 1667.5 / 1667.5 Weight last 48 hrs Weight 108.862 kg Weight 108.862 kg Physical Exam Const: COMMON NORMALS: no acute distress, patient oriented x3 and alert GENERAL APPEARANCE: ill appearing (Little bit better than yesterday) NUTRITIONAL APPEARANCE: obese ORIENTATION/CONSCIOUSNESS: Yes awake HENMT: COMMON NORMALS: oropharynx normal Neck/C-Spine: COMMON NORMALS: no JVD Resp: COMMON NORMALS: normal respiratory effort and clear to auscultation bilaterally AUSCULTATION: clear to auscultation bilaterally Cardio: COMMON NORMALS: no JVD, regular rhythm, S1 normal heart sound present, S2 normal heart sound present and No murmurs present (Cardio) RHYTHM: regular rhythm HEART SOUNDS: S1 normal heart sound present and S2 normal heart sound present GI: COMMON NORMALS: Normal to inspection, nondistended, normoactive bowel sounds present, Soft to palpation and non-tender PALPATION: Yes Soft to palpation Extremity: COMMON NORMALS: no joint enlargement and no pedal edema Neuro: COMMON NORMALS: patient oriented x3 and moves all extremities (Spontaneously. Reduced ROM in elbows due to surrounding swelling.) SENSORIUM/ORIENTATION: Yes alert SENSORY EXAM: Yes extremities (Symmetrical. Denies sensory loss.) Skin: COMMON NORMALS: no rashes or lesions noted GENERAL SKIN EXAM: no rashes or lesions noted RASHES: rashes noted (Faint erythema over swelling soft tissues proximal and distal to elbows.) OTHER: I do not see obvious signs of septic embolization. Data : 03/24/21 05:34 03/24/21 05:34 Micro: Microbiology 03/23/21 12:48 Blood Culture - Preliminary Blood Gram positive cocci 03/23/21 12:48 Blood Culture - Preliminary Blood SPECIMEN COLLECTED A&P Assessment and plan (1) MRSA bacteremia: Again gram-positive cocci in blood from ER at presentation currently. Continue vancomycin. Cannot complete all MRI studies today. Head and cervical spine completed. Additional studies pending including thoracic and lumbar spine, left elbow. Left ankle MRI canceled as per orthopedics due to low suspicion for joint infection. MRSA bacteremia, sepsis secondary to IV drug use, cellulitis. Cannot exclude possible abscess of left forearm with localized swelling. Discussed with him and his mother continuation of antibiotic therapy, as well as closer assessment given multifocal symptoms for possible dissemination of infection. Discussed risk of possible endocarditis especially given history of cardiac procedure in the past with patch repair of ASD. TTE had been done. Low quality echo. No obvious vegetation. Will need JULISA. CRP 206, ESR pending Discussed with him and his mother will require IV antibiotics, duration of which is to be determined depending on further investigations. Case management consultation. Status: Acute (2) Sepsis: With some improvement. Again febrile. Leukocytosis slightly better. Still tachycardic. Secondary to MRSA following IV drug use, cellulitis of arms. Assess for secondary foci of infection as above. Continue vancomycin. Lactic acid normal. Status: Acute (3) Headache: As above Status: Acute (4) Back pain: As above. No sensory levels. Moving all extremities spontaneously. Status: Acute (5) Localized swelling of left forearm: As above. Status: Acute (6) Cellulitis of arm, left: As above. Additionally assess for DVT with venous duplex. Status: Acute (7) Cellulitis of arm, right: As above. Additionally assess for DVT with venous duplex. Status: Acute (8) Left ankle swelling: As above. Status: Acute (9) IV drug abuse: He states he plans to seek rehabilitation. Encourage cessation, discussed current condition and concerns as relating to IV drug use, risk of other complications. Will request case management to assist him with options for rehabilitation. Status: Acute (10) Smoking addiction: Continue to encourage cessation. Nicotine replacement and request for patches. Discussed with him we will also add nicotine lozenges as needed for cravings. Status: Acute (11) Hyponatremia: Improving. Possibly hypovolemic with poor oral intake. Received IV fluid bolus in ER. Continue regular diet. Status: Acute (12) Abnormal urinalysis: With 5-10 squamous patella cells. Recheck unremarkable. Status: Acute Additional A&P Information History of patch repair of patch repair of ASD in childhood Past history of MRSA infection of right hand Attestations Medical Necessity Statement*: Continue admission for cyst management of MRSA bacteremia following IV drug use, sepsis. 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
--- NOTE | 2021-03-24 19:08 | MR_ITS ---
WS: [id number] MRI BRAIN WITH AND WITHOUT CONTRAST HISTORY: MRSA bacteremia, IVD use, sepsis, headache COMPARISON: None available. TECHNIQUE: Multiplanar imaging performed through the brain with MultiHance 20 ml's IV. No acute infarcts are seen. Crocker-white matter differentiation is well preserved. Perivascular space n ear the medial RIGHT temporal lobe. There are numerous scattered bilateral susceptibility artifacts throughout the brain. These are proba loreta from prior hemorrhage at the crocker-white matter junction. No large or acute hemorrhage. Ventricles and extra-axial spaces are normal. Clivus and pituitary gland are normal. Visualized posterior fossa and brainstem are also normal. Postcontrast images are negative for masses or vascular malformations. No evidence for cerebritis or abscess. Dural venous sinuses are normal. Paranasal sinuses: Well aerated with no significant disease. Mastoid air cells: Normal. Calvarium and scalp: Normal. MR/MR head wo/w con [id number] IMPRESSION: 1. No acute infarct or acute hemorrhage. 2. No cerebral abscess or cerebritis. 3. Numerous scattered susceptibility artifacts in the subcortical white matter probably from prior injury with remote petechial hemorrhages.
--- NOTE | 2021-03-24 19:08 | USCV_ITS ---
Denys Beverly Age: 36 Gender: M : 1985 Exam Date: 03/24/2021 06:12 Ordering Phys: Casimiro Hewtit MD Technologist: Liz Holliday Exam Location: [facility] [place] Indication: SWELLING, PAIN, IVDU, EVAL FOR DVT HISTORY: Upper extremity swelling. Upper extremity pain. PROCEDURES: Venous duplex imaging was performed in bilateral upper extremities. The following venous structures were evaluated: internal jugular vein, subclavian vein, axillary vein, and brachial veins. In addition, the basilic vein, cephalic vein, radial vein, and ulnar vein. Serial compression, augmentation maneuvers, and spectral Doppler flow evaluation were performed. FINDINGS: Normal 2-D, color Doppler and phasicity noted in the bilateral upper extremity venous system extending from the internal jugular veins through the main forearms. No thrombosis or occlusion noted. Bilatera subcutaneous edema. CONCLUSIONS No evidence of bilateral upper extremity DVT. Bilateral upper extremity subcutaneous edema. Dr. Erinn Alfrao DO (Electronically Signed) Final Date: 24 March 2021 08:47 S
--- NOTE | 2021-03-24 19:08 | MR_ITS ---
WS: [id number] MRI CERVICAL SPINE with and without contrast. HISTORY: MRSA bacteremia, IVD use, sepsis, pain of entire back COMPARISON: None available. Technique: Multiplanar, multisequence noncontrast imaging of the cervical spine. Contrast imaging sub mitted. Quality of this examination is suboptimal. Normal cervical alignment. No discitis or osteomyelitis. No cord edema. Signal within the cervical cord is normal. Visualized posterior fossa is unremarkable. Craniocervical junction, C1 and C2 relationship, odontoid process and soft tissues are normal. C2-C3: Normal. C3-C4: Moderate size RIGHT paracentral disc osteophyte complex contacting the RIGHT lateral cervical cord and narrowing the foramen. Mild central and moderate RIGHT foraminal stenosis. Mild LEFT foramin al stenosis. C4-C5: Mild osteophytic ridging with narrowing of the foramen. C5-C6: Normal. C6-C7: Normal. C7-T1: Normal. Paraspinal soft tissue are normal. MR/MR cervical spine wo/w [id number] IMPRESSION: 1. Quality of this examination is degraded by motion artifact. 2. No discitis or osteomyelitis. 3. Moderate size RIGHT paracentral disc osteophyte complex at C3-4 with encroa chment and mild posterior displacement of the cervical cord and moderate RIGHT foraminal narrowing. 4. Mild osteophytic ridging with mild foraminal narrowing at C4-5.
[2021-03-24 19:57] LABS: Vancomycin Trough 9.3 ug/mL (10-15)
[2021-03-24] MEDS: trazodone 50 mg Tablet 25 MG PO (20:17)
[2021-03-25] VITALS (10 sets, daily range): BP systolic 116–166; BP diastolic 68–95; PULSE 93–115; RESP 16–24; TEMP 36.9–38.9; O2SAT 95–97
[2021-03-25] MEDS: vancomycin 1,500 MG/300 ML PIGGYBACK 200 MG IV ×2 (04:23→13:34)
[2021-03-25] MEDS: lactated ringers 1,000 ML 150 ML IV ×2 (04:24→17:43)
[2021-03-25] MEDS: morphine 4 mg/mL SDV 1 mL 2 MG IVP ×4 (04:38→17:43)
[2021-03-25 05:48] LABS: Basophils % 0.2 %; Eosinophils % 0.2 %; Hematocrit 28.7 % (42.0-52.0); Hemoglobin 9.6 g/dL (11.7-16.6); Lymphocytes # 1.7 10^3/uL (0.8-4.8); Lymphocytes % 11.7 %; Mean Corpuscular HGB Conc 33.4 g/dL (30.0-36.0); Mean Corpuscular Hemoglobin 29.4 pg (28.0-34.0); Mean Corpuscular Volume 87.8 fl (80-94); Mean Platelet Volume 11.2 fL (7.4-10.4); Monocytes # 1.3 10^3/uL (0.2-0.9); Monocytes % 8.8 %; Neutrophils # 10.58 10^3/uL (1.8-7.7); Nucleated Red Blood Cells % 0 %; Platelet Count 258 10^3/cmm (130-400); Red Blood Count 3.27 10^6/uL (4.1-5.3); Red Cell Distribution Width 15.5 % (12.1-15.1); White Blood Count 14.4 10^3/uL (4.0-10.0)
[2021-03-25 06:05] LABS: Alanine Aminotransferase 29 U/L (0-41); Albumin Level 2.4 g/dL (3.5-5.2); Alkaline Phosphatase 211 IU/L (40-130); Blood Urea Nitrogen 9 mg/dL (6-20); Calcium 7.8 mg/dL (8.5-10.5); Carbon Dioxide 21 mmol/L (22-29); Chloride 99 mmol/L (98-107); Globulin 3.8 g/dL (1.3-4.6); Glomerular Filtration Rate 154.2 mL/min (90-130); Glucose 123 mg/dL (65-115); Osmolality Calculated 274 mOsm/kg (285-295); Sodium 132 mmol/L (136-145); Total Bilirubin 0.4 mg/dL (0.15-1.2); Total Protein 6.2 g/dL (6.6-8.7)
[2021-03-25 06:18] LABS: Anion Gap 17.8 (5-19); Aspartate Amino Transferase 27 U/L (0-40); Potassium 5.8 mmol/L (3.5-5.1)
[2021-03-25] MEDS: nicotine 21 mg Patch 1 PATCH TRANSDERMA (07:56)
[2021-03-25 08:35] LABS: Neutrophils % 79.1 %; Slide Review Slide Review Perform
--- NOTE | 2021-03-25 11:00 | MRR_ITS ---
PROCEDURE INFORMATION: Exam: MR Lumbar Spine Without and With Contrast Exam date and time: 03/25/2021 11:00 AM Age: 36 years old Clinical indication: Low back pain; Additional info: MRSA bacteremia, ivd use, sepsis, pain of entire back TECHNIQUE: Imaging protocol: Multiplanar magnetic resonance images of the lumbar spine without and with intravenous contrast. Contrast material: MULTIHANCE; Contrast volume: 20 ml; Contrast route: INTRAVENOUS (IV); COMPARISON: No relevant prior studies available. FINDINGS: Vertebrae: Unremarkable. Spinal cord: Normal signal. No cord compression. L1-L2: No significant disc disease. No significant spinal canal stenosis. No neural foraminal stenosis. L2-L3: No significant disc disease. No significant spinal canal stenosis. No neural foraminal stenosis. Facet arthritis. L3-L4: No significant disc disease. No significant spinal canal stenosis. No neural foraminal stenosis. Facet arthritis with ligamentum flavum thickening. L4-L5: No significant disc disease. No significant spinal canal stenosis. No neural foraminal stenosis. Facet arthritis with ligamentum flavum thickening. Minor posterior disc bulge. L5-S1: No significant disc disease. No significant spinal canal stenosis. No neural foraminal stenosis. Soft tissues: Nonspecific minor increased signal within the subcutaneous space of the upper lumbar level at the midline. MR/MR lumbar spine wo/w con [id number] IMPRESSION: 1. No evidence canal stenosis or abnormal spinal canal enhancement. 2. Degenerative facet arthritis with no evidence of focal disc herniation.
--- NOTE | 2021-03-25 11:45 | MRR_ITS ---
PROCEDURE INFORMATION: Exam: MR Thoracic Spine Without and With Contrast Exam date and time: 03/25/2021 11:45 AM Age: 36 years old Clinical indication: Pain in thoracic spine; Additional info: MRSA bacteremia, ivd use, sepsis, pain of entire back TECHNIQUE: Imaging protocol: Multiplanar magnetic resonance images of the thoracic spine without and with intravenous contrast. Contrast material: MULTIHANCE; Contrast volume: 20 ml; Contrast route: INTRAVENOUS (IV); COMPARISON: MR cervical spine wo/w [id number] 03/24/2021 10:31 AM FINDINGS: Vertebrae: The sagittal postcontrast series demonstrates most likely artifact at the level of upper thoracic spine vertebrae. Maintenance of thoracic vertebral body heights. Normal alignment. Spinal cord: Normal signal. No cord compression. T1-T2: No significant disc disease. No significant spinal canal stenosis. T2-T3: No significant disc disease. No significant spinal canal stenosis. T3-T4: No significant disc disease. No significant spinal canal stenosis. T4-T5: No significant disc disease. No significant spinal canal stenosis. T5-T6: No significant disc disease. No significant spinal canal stenosis. T6-T7: No significant disc disease. No significant spinal canal stenosis. T7-T8: No significant disc disease. No significant spinal canal stenosis. T8-T9: No significant disc disease. No significant spinal canal stenosis. T9-T10: No significant disc disease. No significant spinal canal stenosis. T10-T11: No significant disc disease. No significant spinal canal stenosis. T11-T12: No significant disc disease. No significant spinal canal stenosis. Other bones/joints: The central spinal canal is maintained. Soft tissues: Unremarkable. Lungs: Areas of signal abnormality within the posterior lungs bilaterally. Areas enhancement of the pleura of the lower lungs posteriorly. Pleural space: Oval abnormal process possibly contained within the pleural space of the right lower lobe with adjacent enhancement. Significant limitation by presumably respiratory motion. Scattered enhancing nodular structures within a portion of the visualized lungs posteriorly. MR/MR thoracic spine wo/w [id number] IMPRESSION: 1. Oval prominent suspected pleural based opacity or possibly empyema right lower chest posteriorly with enhancement of the pleural margin of the lower chest bilaterally. Contrast enhanced CT of the chest is recommended. 2. Multiple areas of interstitial signal abnormality and several scattered enhancing nodular configured opacities in the visualized posterior lungs which are of indeterminate origin. The differential might include nodular septic embolic changes versus atypical multifocal areas of inflammatory processes or atypical pneumonia. This finding would be better evaluated with CT of the chest. 3. No evidence of spinal canal enhancement or stenosis.
[2021-03-25] MEDS: gadobenate dimeglumine 20 mL vial IV (12:28)
--- NOTE | 2021-03-25 15:46 | P.PN_ITS ---
Subjective Subjective: Interval history: Has been having some discomfort in the right lower chest. On MRI noted loculated right lower chest collection, as well as noted multiple nodular metastatic appearing lesions, possibly septic embolization, with small cavitation. Discussed with him and his mother at bedside. Discussed concern for endocarditis. Discussed also cardiology will be ready to perform JULISA, and could do so during another surgical procedure if required. Discussed with him and his mother additional follow-up imaging by CT contrast study of the chest, as well as consideration of drainage of the effusion, to which they would be agreeable. Discussed additional surgical assessment for possibility of need of chest tube with concern expressed on MRI of possible empyema. They verbalized understanding. He reports also that after MRI has been having more pain in the left forearm, less sensation in fingers of the left hand which is new today. This had been relayed to orthopedics by his RN. Concern is that this may have been secondary to dependent positioning of the arm during MRI. Recommendation was for elevation of extremity. I requested also for no IVs or blood pressure checks in the arm. Noted hyperkalemia this morning, potassium 5.8. Requested for low potassium diet. Repeat CK requested as well as repeat K level. He reports could not sleep last night, requesting for increase in dose of trazodone. Reports in the past was on as much as 150 mg. Request for higher dose of pain medication. Vitals/I&O/Wt Last Vital Signs Temp 98.4 F 03/25/21 15:33 Pulse 99 03/25/21 15:33 Resp 18 03/25/21 15:33 BP 116/68 03/25/21 15:33 Pulse Ox 96 03/25/21 15:33 03/25/21 03/25/21 03/25/21 06:59 14:59 22:59 Intake Total 2600 / 5567.5 960 / 960 300 / 1260 Output Total 2000 / 3000 950 / 950 Balance 600 / 2567.5 300 / 310 Weight last 48 hrs Weight 107.501 kg Weight 108.862 kg Physical Exam Narrative: EXAM NARRATIVE: Mother at bedside. Const: COMMON NORMALS: no acute distress, patient oriented x3 and alert GEN ERAL APPEARANCE: ill appearing (Little bit better than yesterday) NUTRITIONAL APPEARANCE: obese ORIENTATION/CONSCIOUSNESS: Yes awake HENMT: COMMON NORMALS: oropharynx normal Neck/C-Spine: COMMON NORMALS: no JVD Resp: COMMON NORMALS: normal respiratory effort and clear to auscultation bilaterally AUSCULTATION: clear to auscultation bilaterally Cardio: COMMON NORMALS: no JVD, regular rhythm, S1 normal heart sound present, S2 normal heart sound present and No murmurs present (Cardio) RHYTHM: regular rhythm HEART SOUNDS: S1 normal heart sound present and S2 normal heart sound present GI: COMMON NORMALS: Normal to inspection, nondistended, normoactive bowel sounds present, Soft to palpation and non-tender PALPATION: Yes Soft to palpation Extremity: COMMON NORMALS: no joint enlargement and no pedal edema OTHER: Taught swelling of L forearm. Hand is warm. Able to greenhouse or nursery transplanter objects, but weak. Small/1.5 cm swelling erythema at lower right posterior medial triceps. Palpable swelling, erythema below L ankle. Neuro: COMMON NORMALS: patient oriented x3 and moves all extremities (Spontaneously. Reduced ROM in elbows due to surrounding swelling.) SENSORIUM/ORIENTATION: Yes alert SENSORY EXAM: Yes extremities (Symmetrical. Denies sensory loss.) Skin: COMMON NORMALS: no rashes or lesions noted GENERAL SKIN EXAM: no rashes or lesions noted RASHES: rashes noted (Faint erythema over swelling soft tissues proximal and distal to elbows.) OTHER: I do not see obvious signs of septic embolization. Data : 03/25/21 05:18 03/25/21 05:18 Micro: Microbiology 03/23/21 12:48 Blood Culture - Preliminary Blood Staphylococcus aureus 03/23/21 12:48 Blood Culture - Preliminary Blood NEGATIVE TO DATE A&P Assessment and plan (1) MRSA bacteremia: Discussed with him and his mother consider that we are seeing evidence of septic embolization in the posterior inferior portions of his lungs, with septic embolic appearing lesions, with cavitation. Discussed also loculated effusion in the right lower chest where he states he has also been having discomfort with deep inspiration. Discussed consideration/need for JULISA and as per prior discussion with cardiology may be performed as either stand-alone procedure, or if additional surgical intervention is planned could be done at the same time. She is agreeable. They understand likely endocarditis/complicated bacteremia. Discussed also consideration that if JULISA is revealing paravalvular abscess, or other additional abnormality, there may be need for cardiac surgery as well. He and his mother verbalized understanding, stating that he is concerned about this as well. Discussed repeat positive blood cultures on presentation in ER, although anticipated as he had only been on oral antibiotics. Repeat additional cultures plan for tomorrow morning to reassess for clearing of bacteremia. As per discussion with orthopedics pending MRI of the left elbow/forearm to closer assess swelling there, with possibility of drainage of suspected abscess of the left forearm. Appreciate surgical assessment also given changes after MRI today. Requested additional studies including ultrasonography of area below the lateral left ankle due to redness with some localized swelling, right distal posterior medial upper arm/triceps with noted small about 1.5 cm localized swelling/erythema there as well. Again gram-positive cocci in blood from ER at presentation currently. Continue vancomycin. Cannot complete all MRI studies in 1 go. Head and cervical spine completed. Today completed thoracic and lumbar spine, pending left elbow. Left ankle MRI canceled as per orthopedics due to low suspicion for joint infection. Complicated MRSA bacteremia, sepsis secondary to IV drug use, cellulitis. Discussed with him and his mother continuation of antibiotic therapy, as well as closer assessment given multifocal symptoms for possible dissemination of infection. Discussed risk of possible endocarditis especially given history of cardiac procedure in the past with patch repair of ASD. TTE had been done. Low quality echo. No obvious vegetation. JULISA to be done. CRP 206, ESR pending Discussed with him and his mother will require IV antibiotics, duration of which is to be determined depending on further investigations. Case management consultation. Status: Acute (2) Sepsis: With some improvement. Again febrile. Leukocytosis slightly better. Still tachycardic. Secondary to MRSA following IV drug use, cellulitis of arms. Assess for secondary foci of infection as above. Continue vancomycin. Lactic acid normal. Status: Acute (3) Headache: Resolved Status: Acute (4) Back pain: As above. No sensory levels. Moving all extremities spontaneously. Status: Acute (5) Localized swelling of left forearm: As above. Status: Acute (6) Cellulitis of arm, left: As above. Additionally assess for DVT with venous duplex. Status: Acute (7) Cellulitis of arm, right: As above. Additionally assess for DVT with venous duplex. Status: Acute (8) Left ankle swelling: As above. Status: Acute (9) IV drug abuse: He states he plans to seek rehabilitation. Encourage cessation, discussed current condition and concerns as relating to IV drug use, risk of other complications. Requested case management to assist him with options for rehabilitation. Status: Acute (10) Smoking addiction: Continue to encourage cessation. Nicotine replacement and request for patches. Discussed with him we will also add nicotine lozenges as needed for cravings. Status: Acute (11) Hyponatremia: Possibly hypovolemic with poor oral intake. Received IV fluid bolus in ER. Continue regular diet. Status: Acute (12) Abnormal urinalysis: With 5-10 squamous patella cells. Recheck unremarkable. 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 Coding Level of Care Code Acute Tapper Helper for [facility] Fwd Diagnoses MRSA bacteremia R78.81; B95.62 Sepsis A41.9 Headache R51.9 Back pain M54.9 Localized swelling of left forearm R22.32 Cellulitis of arm, left L03.114 Cellulitis of arm, right L03.113 Left ankle swelling M25.472 IV drug abuse F19.10 Smoking addiction F17.200 Hyponatremia E87.1 Abnormal urinalysis R82.90
--- NOTE | 2021-03-25 16:34 | CTR_ITS ---
PROCEDURE INFORMATION: Exam: CT Chest With Contrast; Diagnostic Exam date and time: 03/25/2021 4:34 PM Age: 36 years old Clinical indication: Fever and shortness of breath; Prior surgery; Surgery date: 6+ months; Surgery type: Heart; Patient HX: Weakness, SOB, fever; Additional info: Possible empyema, poss septic emboli TECHNIQUE: Imaging protocol: Diagnostic computed tomography of the chest with contrast. Radiation optimization: All CT scans at this facility use at least one of these dose optimization techniques: automated exposure control; mA and/or kV adjustment per patient size (includes targeted exams where dose is matched to clinical indication); or iterative reconstruction. Contrast material: OMNI 300; Contrast volume: 95 ml; Contrast route: INTRAVENOUS (IV); COMPARISON: CTA Chest-Pulmonary Emb [id number] 02/12/2019 12:04 PM RADIATION DOSE METRICS: Total DLP (mGy-cm): 993.14 FINDINGS: Lungs: There are least 20 bilateral pulmonary nodules ranging in size from 2-17 mm the few which show possible cavitation. These are considered highly suspicious for pulmonary metastasis. Differential considerations include septic emboli. There is some areas of patchy consolidation in the periphery of the lingula and at the left lung base and in the right lower lobe which may represent areas of pneumonia. There is right basilar atelectasis. There is calcified granuloma in the right lower lobe not significantly changed. Pleural spaces: There is some loculated right pleural effusion. Heart: Unremarkable. No cardiomegaly. No pericardial effusion. Aorta: There is no thoracic aortic aneurysm or dissection. Lymph nodes: There are right paratracheal lymph nodes measuring up to 10 mm and mildly prominent subcarinal lymph nodes but no actual adenopathy. Bones/joints: There are findings of median sternotomy. No evidence of skeletal metastasis or acute fracture is identified. Soft tissues: Unremarkable. CT/CT chest w con* [id number] IMPRESSION: 1. Bilateral pulmonary nodules worrisome for metastatic disease. 2. Differential considerations include septic emboli rather than metastasis. 3. Mild left basilar infiltrate. 4. Right lower lobe atelectasis. 5. Small loculated right pleural effusion. Radiation Dose CTDIVOL = (mGy): DLP = 993.14 (mGy-cm)
[2021-03-25] MEDS: nicotine 4 mg lozenge MUCOUS MEM (16:45)
[2021-03-25] MEDS: iohexol 300 mg/mL 100 mL Btl IV (17:10)
[2021-03-25 18:44] LABS: Creatine Phosphokinase 30 U/L (39-308)
--- NOTE | 2021-03-25 18:47 | P.CONIM_ITS ---
Providers/Reason For Consult Consulting Physician/Specialty*: Aristides Gibbons, DO- General Surgery Reason for Consult*: concern for LUE compartment syndrome/abscess; empyema Attending Physician: Casimiro Hewitt History of Present Illness History of Present Illness Denys Beverly is a 36 year old male with history of IV drug abuse off and on, heroin and methamphetamine in the past who presented to the ER on 03/20. A CTA of the arm was performed at that time showing cellulitis with no clear drainable collection and patient was discharged on Bactrim. He represented on the with complaints of malaise, weakness, and persistent swelling and pain in bilateral forearms/elbows. He had blood cultures drawn at his ER visit on the which were positive for MRSA bottles. On presentation to the ER, he was febrile and tachycardic. He had a leukocytosis to 19. Since admission, due to patient complaining of back and head pain, patient underwent MRI brain and spine. Brain MRI revealed numerous scattered artifacts probably related to prior injury with remote petechial hemorrhages. Thoracic and lumbar spine were negative. He was noted to have concern for right sided pleural effusion so a CT chest was ordered which revealed bilateral pulmonary nodules concerning for septic emboli and a small loculated right pleural effusion concerning for empyema. Dr. Hewitt was concerned that patient was potentially developing f or compartment syndrome of his left upper extremity due to recent decrease sensation and decreased movement of that extremity. Of note the patient does have an elevated potassium this morning 5.8. His WBC is at down this morning to 14.4. His initial CK was normal on the . Blood cultures from this admission are growing out staph aureus at this point. Patient currently notes generalized malaise, ill feeling, and notes swelling on his right arm at the dorsal aspect of the proximal forearm and left lateral ankle swelling as well. His left medial ventral forearm is more tender and swollen according to the patient. He is able to move his fingers bilaterally without pain. Review of Systems General: Reports: 10 or more systems reviewed and unremarkable except in HPI and below Meds/Allergies Home Medications and Allergies Home Medications Medication Instructions Recorded Confirmed Last Taken Type sulfamethoxazole-trimethoprim 1 tab PO BID 10 Days #20 tab 03/20/21 03/23/21 03/23/21 05:00 Rx [Bactrim DS] hydrocodone-acetaminophen 1 tab PO Q6H PRN 03/23/21 03/23/21 03/22/21 History ibuprofen 400 mg PO Q4H PRN 03/23/21 03/23/21 03/23/21 08:00 History Allergies Allergy/AdvReac Type Severity Reaction Status Date / Time No Known Allergies Allergy Verified 03/23/21 13:08 Current Medications Current Medications Generic Name Dose Route Start Last Admin Trade Name Freq PRN Reason Stop Dose Admin Acetaminophen 650 mg 03/23/21 19:08 03/24/21 16:03 Acetaminophen 325 Mg Tablet PO 650 mg Q6H PRN Administration Mild/Mod Pain Or Temp >/= 101 Lactated Ringer's 1,000 mls @ 150 mls/hr 03/23/21 19:08 03/25/21 17:43 Lactated Ringers IV 150 mls/hr .Q6H40M HU Administration Vancomycin/PEG/NADA/Lysine/Water 1,500 mg in 300 mls @ 200 mls/hr 03/23/21 20:00 03/25/21 15:05 Vancocin IV Infused Q8H HU Infusion Morphine Sulfate 2 mg 03/23/21 19:08 03/25/21 17:43 Morphine 4 Mg/Ml Sdv 1 Ml IVP 2 mg Q4H PRN Administration SEVERE PAIN Nicotine 1 patch 03/25/21 09:00 03/25/21 07:56 Nicotine 21 Mg Patch TRANSDERMA 1 patch DAILY HU Administration Nicotine Polacrilex 4 mg 03/23/21 19:08 03/25/21 16:45 Nicotine 4 Mg Lozenge MUCOUS MEM 4 mg Q2H PRN Administration NICOTINE CRAVINGS PFSH Acute PFSH: Medical History IV drug abuse Smoking addiction Surgical History Abscess of hand MRSA S/P patch closure of atrial septal defect Family History Mother Non-alcoholic cirrhosis Social History Smoking and tobacco status: current every day smoker Alcohol intake: never Substance/Drug Use: current Substance/Drug use type: Heroin and Other Other substance/drug use details: Fentanyl Desire information about substance/drug rehabilitation?: Yes Counseling given: Yes Vitals/I&O/Wt Last Vital Signs Temp 98.4 F 03/25/21 15:33 Pulse 99 03/25/21 15:33 Resp 18 03/25/21 15:33 BP 116/68 03/25/21 15:33 Pulse Ox 96 03/25/21 15:33 03/25/21 03/25/21 03/25/21 06:59 14:59 22:59 Intake Total 2600 / 5567.5 1960 / 1960 780 / 2740 Output Total 2000 / 3000 950 / 950 700 / 1650 Balance 600 / 2567.5 1010 / 1010 80 / 1090 Weight last 48 hrs Weight 237 lb Weight 240 lb Physical Exam Const: COMMON NORMALS: patient oriented x3 GENERAL APPEARANCE: disheveled and ill appearing NUTRITIONAL APPEARANCE: overweight Eye: COMMON NORMALS: conjunctivae normal and no scleral icterus CONJUNCTIVA: Yes conjunctivae normal Chest: COMMONS NORMALS: normal inspection of the chest and normal palpation of entire chest wall Resp: COMMON NORMALS: normal respiratory effort AUSCULTATION: diminished lung sounds on the right in the lower lung garcia Cardio: COMMON NORMALS: regular rate and regular rhythm RATE: regular rate RHYTHM: regular rhythm GI: COMMON NORMALS: Normal to inspection, nondistended, normoactive bowel sounds present : COMMON NORMALS: Yes no CVA tenderness BLADDER/KIDNEY EXAM: Yes no CVA tenderness Back/Pelvis: COMMON NORMALS: no CVA tenderness Extremity: RIGHT UPPER EXTREMITY: Yes elbow joint (Decreased due to pain) Right elbow: Yes ROM and Yes lower arm (Multiple needle tracks, erythema and induration- TTP) Right lower arm: Yes inspection LEFT UPPER EXTREMITY: Yes upper arm (Generalized edema around the area of the elbow) Left upper arm: Yes inspection and Yes lower arm (10 cm area of erythema, induration with a central area of fluctuance) Left lower arm: Yes inspection and Yes neurovascular exam (Decreased sensation, decreased range of motion) LEFT LOWER EXTREMITY: Yes ankle joint (3 cm area of induration and erythema on lateral aspect of ankle) Left ankle: Yes inspection EXTREMITY IMAGE (FRONT): 1. Erythema, induration, fluctuance Neuro: COMMON NORMALS: patient oriented x3 Psych: COMMON NORMALS: mental status grossly normal Data Micro: Micro: Microbiology 03/23/21 12:48 Blood Culture - Pr eliminary Blood Staphylococcus aureus 03/23/21 12:48 Blood Culture - Pr eliminary Blood NEGATIVE TO PAUL E A&P Assessment and plan (1) Abscess: Patient with left forearm abscess and likely developing right forearm and left ankle abscess. Dr. Aguila consulted already with recommendation of MRI and plan for drainage. Will defer to him at this point. Dr. Whitey also concern for possible compartment syndrome. Patient's compartments feel soft and patient does not have pain on passive movement therefore I think the diagnosis of forearm compartment syndrome is less likely however recommended close observation and obtaining a CK and repeat potassium which are pending. Status: Acute (2) Empyema: This loculated pleural effusion is most likely an empyema. I do not believe that this chest tube will be wholly adequate for drainage of this given its loculations. However, if patient does go to the OR for other reasons it may be reasonable to attempt a chest tube placement. I would recommend at least obtaining fluid from this collection to rule out or rule in empyema and for cul ture. Patient likely with disseminated MRSA with septic emboli throughout his whole body. Patient with history of cardiac repair with prosthetic material in the heart per patient's mother. Patient would also benefit from a JULISA which is already planned. 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
[2021-03-25] MEDS: acetaminophen 325 mg Tablet 650 MG PO (19:49)
--- NOTE | 2021-03-25 20:05 | PC.NURSE ---
Patient asked to leave AMA, this nurse educated patient and his mother that was at bedside that he would be leaving AMA and that he is very sick and we are providing him with treatment that he needs. Patient wants to leave to go to [place] as he feels they will provide him with better care. This nurse gave the facts that if he leaves AMA that it is a long drive and that he is febrile and tachypnea, patient stated he understands but still wishes to leave. This nurse called physician and sent message via voalte to inform about the situation. And was notified via message when patient signed forms and left. This nurse educated clearly and bluntly of patients current condition and that it was unsafe to leave the medical treatment he was receiving. He stated that he clearly understood that situation. Patient was AAOx4. Iv was removed and patient left with family.
--- NOTE | 2021-03-27 12:26 | PC.SOCIAL ---
Addendum entered by Veena Moore RN 03/27/21 12:41: Called [facility] and spoke with Elysia on floor 6B to confirm patient is being seen at this hospital and is admitted. Discussed culture results and sent these for continuity of care purposes noting they are critical results. and Fax . Confirmation received that results were transmitted successfully. Original Note: Blood culture results obtained and returned positive 3 bottles for MRSA. Patient left AMA. Tried to reach patient however Mother nor patient answered phone.Left message that a return call is needed and is important based on some test results. Unable to reach father at number listed.Tried multiple times and it is blank space phone does not ring.
--- NOTE | 2021-03-27 22:48 | P.DS_ITS ---
Discharge Providers Date of Admission: 03/23/21 18:26 Date of Discharge: March 27, 2021 Attending Provider at Admission: Casimiro Hewitt Attending Provider at Discharge: Casimiro Hewitt Diagnoses at Discharge Discharge Diagnosis (1) MRSA bacteremia: Status: Acute (2) Sepsis: Status: Acute (3) Headache: Status: Acute (4) Back pain: Status: Acute (5) Localized swelling of left forearm: Status: Acute (6) Cellulitis of arm, left: Status: Acute (7) Cellulitis of arm, right: Status: Acute (8) Left ankle swelling: Status: Acute (9) IV drug abuse: Status: Acute (10) Smoking addiction: Status: Acute (11) Hyponatremia: Status: Acute (12) Abnormal urinalysis: Status: Acute Reason for Visit Reason for Visit: pcp sent [facility] Hospital Course Hospital Course Pleasant 36-year-old gentleman with history of childhood ASD patch repair, IV drug abuse of fentanyl, heroin, past history of methamphetamine use although denies recent use, history of MRSA hand infection was evaluated in ER on 03/20 due to bilateral elbow swelling after bumping into car side view mirror, was assessed by CT at that time with finding of soft tissue swelling and cellulitis, without finding of joint effusion, was discharged with Bactrim, returned to ER accompanied by his mother with malaise, generalized weakness, persistent swelling and pain in bilateral forearms, worse on the right with a large hard knot in the medial proximal forearm, overlying soft tissue edema of proximal forearm distal upper arm. Was called to return to the hospital with blood cultures obtained in ER during his visit growing MRSA. On return in sepsis, febrile with tachycardia and leukocytosis. Malaise. Repeat blood cultures were collected in ER again growing MRSA. He was started on vancomycin, received IV hydration. Was assessed by orthopedics due to swelling in left forearm with pain, to exclude more serious conditions including compartment syndrome. Deemed to have cellulitis of forearms, posterolaeral left foot below the ankle. Additional imaging was being obtained in descending order of concern. As he complained of headache and back pain MRI imaging was arranged and consecutive imaging studies were obtained of head, cervical, subsequently thoracic and lumbar spine. MRI elbow was scheduled. Due to smaller patches of swelling US imaging was also requested for posterolateral left foot below the ankle and distal posteromedial upper arm/tricep due to possile small collection there, with anticipation of possible I&D together with possible forming abscess of left forearm, pending MRI with CT imaging negative for any collection. TTE was obtained and did not reveal obvious paravalvular abscess or vegetation. JULISA was to be arranged possibly combined with one of the surgical procedures. Surgery was additionally consulted with finding of loculated effusion on thoracic spine MRI, although the effusion was small with plan to consider aspiration with IR once available on Saturday. Suspected endocarditis due to same study revealing also multifocal nodular hyperintensities suspicious for septic embolic disease (or less likely metastatic disease). The seriousness of condition risk of other sites of septic embolic spread with MRSA, need for possible multiple surgical interventions for source control in addition to at minimum 6 weeks IV antibiotics needed and if untreated risk of further infection spread, disability and were discussed with both him and his mother, but it appears he left the hospital Against Medical Advice in the late evening of 03/27. 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 Additionally HIV and hepatitis testing obtained with Hep C antibody returning positive. Physical Exam Narrative: EXAM NARRATIVE: Patient left in the evening, physical exam from earlier in the day is in the progress note. Discharge Data Data Completed and Pending: Completed Studies During Hospitalization Category Date Time Status CT chest w con* [id number] Routine Cat Scan 03/25/21 16:34 Completed XR chest 1V steven ble [id number] Stat Exams 03/23/21 12:15 Completed MR cervical spine wo/w [id number] Routin e MRI 03/24/21 19:08 Completed MR head wo/w con [id number] Routine MRI 03/24/21 19:08 Completed MR lumbar spine w o/w con [id number] Rout ine MRI 03/25/21 11:00 Completed MR thoracic spine wo/w [id number] Routin e MRI 03/25/21 11:45 [place] [id number] Routin e Ultrasound 03/24/21 19:08 Completed CV. echo complete * [id number] Stat Ultrasound 03/23/21 12:30 Completed Pending at discharge Category Date Time Status Erythrocyte Sedim entation Rate Rout ine Lab 03/23/21 14:49 Received Vitals: Last Vital Signs Temp 102.1 F H 03/25/21 20:11 Pulse 110 H 03/25/21 20:11 Resp 24 H 03/25/21 20:11 BP 160/91 03/25/21 20:11 Pulse Ox 97 03/25/21 20:11 Discharge Plan Discharge Patient Disposition: Left Against Medical Advice Prescriptions: No Action sulfamethoxazole-trimethoprim [Bactrim DS] 800-160 mg tablet 1 tab PO BID 10 Days Qty: 20 RF: 0 hydrocodone-acetaminophen 5-325 mg tablet 1 tab PO Q6H PRN (Reason: Pain) RF: 0 ibuprofen 200 mg Tablet 400 mg PO Q4H PRN (Reason: Pain) RF: 0 Patient Instructions: Opioid Safety Discharge Attestations Time Spent in Discharge Care*: greater than 30 min Quality Metrics Clinical Quality Measures During this hospital stay, did patient experience: None Coding Level of Care Code Acute g DC note Diagnoses MRSA bacteremia R78.81; B95.62 Sepsis A41.9 Headache R51.9 Back pain M54.9 Localized swelling of left forearm R22.32 Cellulitis of arm, left L03.114 Cellulitis of arm, right L03.113 Left ankle swelling M25.472 IV drug abuse F19.10 Smoking addiction F17.200 Hyponatremia E87.1 Abnormal urinalysis R82.90
--- NOTE | 2021-03-28 08:00 | PC.SOCIAL ---
Per Dr Hewitt request since unable to reach family and patient is currently at [facility] order given to fax the hepatitis panel to [facility] as well. Faxed to same location as yesterday with confirmation that fax transmitted successfully to attn: Nurse/ Provider caring for patient on floor 6B. Called floor to alert this was being sent.
--- NOTE | 2021-03-28 10:38 | PC.SOCIAL ---
discharge follow up call made, unable to reach patient, voicemail not available.
[2021-03-29 13:36] LABS: Erythrocyte Sedimentation Rate 122 mm/hr (0-10)
== END 2021-03-25 20:12 | disposition left against medical advice (07) | DRG 871 ==
LOC: ER 12:47 → MEDSURG 17:56
PROVIDERS: Admitting Provider Internal Medicine; Emergency Provider Family Medicine; Visit Provider Internal Medicine
DX: A41.9 Sepsis, unspecified organism (principal); J86.9 Pyothorax without fistula; I26.90 Septic pulmonary embolism without acute cor pulmonale; L03.114 Cellulitis of left upper limb; L03.113 Cellulitis of right upper limb; L03.116 Cellulitis of left lower limb; L02.414 Cutaneous abscess of left upper limb; E87.1 Hypo-osmolality and hyponatremia; I38 Endocarditis, valve unspecified; I76 Septic arterial embolism; B95.62 Methicillin resistant Staphylococcus aureus infection as the cause of diseases classified elsewhere; F19.10 Other psychoactive substance abuse, uncomplicated; R51.9 Headache, unspecified; F17.200 Nicotine dependence, unspecified, uncomplicated; R82.90 Unspecified abnormal findings in urine; R76.8 Other specified abnormal immunological findings in serum; R53.81 Other malaise; M25.48 Effusion, other site; M54.89 Other dorsalgia; Z86.79 Personal history of other diseases of the circulatory system; Z86.14 Personal history of Methicillin resistant Staphylococcus aureus infection
CPT/HCPCS: 36415; 70553; 71045; 71260; 72156; 72157; 72158; 80053; 80074; 80202; 81001; 81003; 82550; 83605; 83880; 85025; 85651; 86140; 87040; 87077; 87186; 87205; 87806; 93005; 93306; 93970; 96365; 96375; 99285; 99291; A9577; J2270; J3370; J7030; J7050; Q9967

== ENCOUNTER 2021-05-11 23:47 | Emergency (ER) | payer MEDICAID, SELFPAY ==
[2021-05-11 23:54] VITALS: BP 126/73; PULSE 120; RESP 12; TEMP 37.4; O2SAT 94; BMI 34.9
[2021-05-12 00:18] VITALS: BP 116/55; PULSE 120; RESP 16; O2SAT 96
--- NOTE | 2021-05-12 01:31 | ED_ITS ---
HPI - General Adult General: Chief complaint: Overdose Stated complaint: OD Time Seen by Provider: 05/11/21 23:52 History of Present Illness: HPI narrative: Patient is a 36-year-old male with history of fentanyl use presenting to emergency room with accidental overdose. Patient was found down outside by EMS crew who administered 0.8 mg of Narcan with significant provement in mental status. On arrival, patient is AAO x3 endorses using heroin about 30 minutes ago. Patient denies any other focal complaints at this time. Denies any associated coingestions. Onset: 30 minutes ago Duration:30 minutes Location:streets Severity:severe Review of Systems Narrative: Constitutional: No fever, no chills. HEENT: No vision changes CV: No chest pain, no palpitations PULM: no cough, no dyspnea. GI: No abdominal pain, no N/V/D. : No dysuria MSKEL: No muscle pain SKIN: No new rashes, no lesions. NEURO: No headache, no focal weakness. HEME: No visible bruises PSYCH: Normal mood PFSH ED PFSH: Medical History IV drug abuse Smoking addiction Surgical History Abscess of hand MRSA S/P patch closure of atrial septal defect Family History Mother Non-alcoholic cirrhosis Social History Smoking and tobacco status: current every day smoker Alcohol intake: never Desire information about substance/drug rehabilitation?: Yes Counseling given: Yes Physical Exam Narrative: EXAM NARRATIVE: Head: Atraumatic Eyes: PERRL, conjunctiva without injection ENT: Mucous membrane moist NECK: Supple, ROM intact LUNGS: LCTAB, no crackles/rhonchi CV: Sinus tachycardia ABDOMEN: Soft, nontender in all quadrants EXTREMITY: Normal ROM SKIN: No rash or erythema NEURO: Awake and alert, no focal motor deficits. GCS 15 PSYCH: Normal mood and affect Course Vital Signs: Vital signs: Vital Signs Temperature 99.3 F 05/11/21 23:54 Pulse Rate 103 H 05/12/21 03:57 Respiratory Rate 15 05/12/21 03:57 Blood Pressure 104/62 05/12/21 03:57 Pulse Oximetry 98 05/12/21 03:57 MDM - General Adult MDM Narrative: Medical decision making narrative: 36-year-old male presents emergency room after an acute accidental heroin overdose. Patient received Narcan in the field with significant improvement in mental status. On arrival, patient's GCS 15. No focal complaints. Patient was observed in the emergency room for the next 3 hours without any change in mentation. The present time, patient denies any use of any other long-acting opiates. Tachycardia improved with IVF. Patient is stable for discharge. Rx narcan scripts Disposition: Discharge. Patient counseled regarding diagnostic impression, treatment plan. Patient given ED strict return precautions to return for continuation, worsening, or development of new symptoms. Instructed to f/u w/ PCP regarding symptoms today. Patient verbalized understanding. Discharge Plan Discharge Patient Disposition: Home Clinical Impression: Accidental fentanyl overdose, Altered mental status Condition: Stable Prescriptions: New Narcan 4 mg/actuation spray,non-aerosol 4 mg intranasal Q2M PRN (Reason: opioid overdose) Qty: 2 RF: 0 Held hydrocodone-acetaminophen 5-325 mg tablet 1 tab PO Q6H PRN (Reason: Pain) RF: 0 Hold Instructions: Resume on 06/02/21. No Action ibuprofen 200 mg Tablet 400 mg PO Q4H PRN (Reason: Pain) RF: 0 Discharge Orders: Discharge ED (Routine); Ordered 05/12/21 Ordered By: Izzy Velazquez Discharge Diet: Advance as tolerated Discharge Activity: Resume usual activity Patient Instructions: Opioid Safety Activity Restrictions/Additional Instructions: Come back to the emergency room if any new or concerning complaints. Please be careful with your taking opiate related medication including fentanyl and oxycodone. Coding Level of Care Code ED Outdoor Pursuits Instructor for Gypsy Claros
[2021-05-12] MEDS: sodium chloride 0.9% 1,000 ML 999 ML IV (02:33)
--- NOTE | 2021-05-12 02:34 | PC.NURSE ---
Pt. states that they feel fine, and as far as he knew they were just going to keep him to observe him. I have explained that he is corrected but the doctor is in an emergency and i have left a note for some Tylenol for him.
[2021-05-12] MEDS: acetaminophen 500 mg Tablet 1000 MG PO (03:15)
[2021-05-12 03:57] VITALS: BP 104/62; PULSE 103; RESP 15; O2SAT 98
--- NOTE | 2021-05-12 04:10 | CTR_ITS ---
PROCEDURE INFORMATION: Exam: CT Head Without Contrast Exam date and time: 05/12/2021 4:10 AM Age: 36 years old Clinical indication: Injury or trauma; Blunt trauma (contusions or hematomas); Patient HX: Fall this a. M. C/O headache with multiple abrasions to RT orbit and temporal region. TECHNIQUE: Imaging protocol: Computed tomography of the head without contrast. Radiation optimization: All CT scans at this facility use at least one of these dose optimization techniques: automated exposure control; mA and/or kV adjustment per patient size (includes targeted exams where dose is matched to clinical indication); or iterative reconstruction. COMPARISON: No relevant prior studies available. RADIATION DOSE METRICS: Total DLP (mGy-cm): 1005.14 FINDINGS: Brain: No acute intracranial hemorrhage or mass effect. No definite acute infarct by CT. Cerebral ventricles: Ventricle size is normal for age. Paranasal sinuses: Included paranasal sinuses are essentially clear. Mastoid air cells: No significant acute finding. Bones/joints: No definite acute skull fracture. CT/CT head wo con* [id number] IMPRESSION: 1. No acute intracranial hemorrhage or mass effect. 2. Other findings discussed above. 3. Please see subsequent CT Facial Bone report for complete evaluation of the facial bones. Radiation Dose CTDIVOL = (mGy): DLP = 1005.14 (mGy-cm)
--- NOTE | 2021-05-12 04:10 | CTR_ITS ---
PROCEDURE INFORMATION: Exam: CT Maxillofacial Without Contrast Exam date and time: 05/12/2021 4:10 AM Age: 36 years old Clinical indication: Injury or trauma; Blunt trauma (contusions or hematomas); Orbit/periorbital; Right; Patient HX: Fall this a. M. C/O headache with multiple abrasions to RT orbit and temporal region. TECHNIQUE: Imaging protocol: Computed tomography images of the face without contrast. Radiation optimization: All CT scans at this facility use at least one of these dose optimization techniques: automated exposure control; mA and/or kV adjustment per patient size (includes targeted exams where dose is matched to clinical indication); or iterative reconstruction. COMPARISON: CT head wo con* [id number] 05/12/2021 4:34 AM RADIATION DOSE METRICS: Total DLP (mGy-cm): 774.67 FINDINGS: Orbital cavity: Orbital contents appear intact/unremarkable. Bones/joints: No definite evidence of acute facial bone/orbital fracture. Paranasal sinuses: Minimal focal mucosal thickening in the inferior right maxillary sinus. Included paranasal sinuses otherwise appear essentially clear. Soft tissues: Very mild right periorbital soft tissue swelling. CT/CT facial bones wo con* [id number] IMPRESSION: 1. No definite acute facial bone/orbital fracture by CT. 2. Other findings discussed above. Radiation Dose CTDIVOL = (mGy): DLP = 774.67 (mGy-cm)
[2021-05-12 05:21] VITALS: BP 112/82; PULSE 78; RESP 18; O2SAT 98
== END 2021-05-12 05:23 | disposition home or self-care (01) ==
PROVIDERS: Emergency Provider Emergency Medicine
DX: T40.411A Poisoning by fentanyl or fentanyl analogs, accidental (unintentional), initial encounter (principal); R41.82 Altered mental status, unspecified; F17.210 Nicotine dependence, cigarettes, uncomplicated
CPT/HCPCS: 70450; 70486; 96360; 99284; J7030

== ENCOUNTER 2021-07-11 23:58 | Emergency (ER) | payer MEDICAID, SELFPAY ==
[2021-07-11 23:59] VITALS: BP 124/72; PULSE 115; RESP 18; TEMP 38.1; O2SAT 98; BMI 33.0
--- NOTE | 2021-07-12 00:04 | W.ED.OVERDOS ---
HPI - Overdose General: Chief Complaint: Overdose Stated Complaint: OD Time Seen by Provider: 07/11/21 23:59 Source: patient and EMS Mode of arrival: EMS Limitations: no limitations History of Present Illness: HPI Narrative: 36-year-old male has a history of drug abuse with his drug of choice being fentanyl he has been seen here multiple times for overdoses. He states he did use IV fentanyl roughly an hour ago he is found breathing EMS was called EMS gave him Narcan he is now awake and alert answering all my questions appropriately states this was accidental denies any suicidal attempt. Denies any worsening proving factors. Review of Systems Const: Denies: fever(s), chills, body aches or change in appetite Eyes: Denies: blurry vision or eye discomfort ENMT: Denies: throat pain or dental pain Card: Denies: chest pain Resp: Denies: dyspnea GI: Denies: abdominal pain, nausea, vomiting or diarrhea : Denies: dysuria Musc: Denies: neck pain or back pain Skin/Breast: Denies: rash Neuro: Denies: headache(s) Psych: Denies: depression Suleiman/Lymph: Denies: easy bruising All/Imm: Denies: urticaria PFSH ED PFSH: Medical History IV drug abuse Psychiatric care Smoking addiction Surgical History Abscess of hand MRSA S/P patch closure of atrial septal defect Family History Mother Non-alcoholic cirrhosis Social History Smoking and tobacco status: current every day smoker Alcohol intake: never Desire information about substance/drug rehabilitation?: Yes Counseling given: Yes Physical Exam Const: COMMON NORMALS: no acute distress, patient oriented x3 and healthy appearing HENMT: COMMON NORMALS: normocephalic and atraumatic HEAD & SCALP: normocephalic and atraumatic Eye: COMMON NORMALS: Equal, round and reactive pupils present and EOMs intact bilaterally PUPIL: Yes Equal, round and reactive pupils present Neck/C-Spine: COMMON NORMALS: full ROM and supple Chest: COMMONS NORMALS: normal inspection of the chest and normal palpation of entire chest wall Resp: COMMON NORMALS: normal respiratory effort, No retractions, No use of accessory muscles and clear to auscultation bilaterally AUSCULTATION: clear to auscultation bilaterally Cardio: COMMON NORMALS: regular rate, regular rhythm and No murmurs present (Cardio) RATE: regular rate RHYTHM: regular rhythm GI: COMMON NORMALS: Normal to inspection, nondistended, normoactive bowel sounds present, Soft to palpation, non-tender and no masses PALPATION: Yes Soft to palpation Extremity: COMMON NORMALS: normal to inspection and full ROM Neuro: COMMON NORMALS: patient oriented x3, moves all extremities and no focal motor deficits Psych: COMMON NORMALS: mental status grossly normal, Normal thought process present and cooperative THOUGHT PROCESS: Normal thought process present Skin: COMMON NORMALS: no rashes or lesions noted and no wounds GENERAL SKIN EXAM: no rashes or lesions noted Course Vital Signs: Vital signs: Vital Signs Temperature 100.5 F H 07/11/21 23:59 Pulse Rate 115 H 07/11/21 23:59 Respiratory Rate 18 07/11/21 23:59 Blood Pressure 124/72 07/11/21 23:59 Pulse Oximetry 98 07/11/21 23:59 MDM - Overdose MDM Narrative: Medical decision making narrative: Patient presents here after fentanyl overdose has been well-appearing here he is requesting discharge she is stable for discharge he is to follow-up with PCP and return if worsening. He understands agrees to plan. Discharge Plan Discharge Patient Disposition: Home Clinical Impression: Drug overdose Qualifiers: Encounter type: initial encounter Injury intent: accidental or unintentional Qualified Code(s): T50.901A - Poisoning by unspecified drugs, medicaments and biological substances, accidental (unintentional), initial encounter Condition: Stable Prescriptions: No Action Narcan 4 mg/actuation spray,non-aerosol 4 mg intranasal Q2M PRN (Reason: opioid overdose) Qty: 2 RF: 0 hydrocodone-acetaminophen 5-325 mg tablet 1 tab PO Q6H PRN (Reason: Pain) RF: 0 Hold Instructions: Resume on 06/02/21. ibuprofen 200 mg Tablet 400 mg PO Q4H PRN (Reason: Pain) RF: 0 Discharge Orders: Discharge ED (Routine); Ordered 07/12/21 Ordered By: Ping Washington Discharge Diet: Advance as tolerated Discharge Activity: Resume usual activity Patient Instructions: Adult Overdose (ED) Coding Level of Care Code ED Tram Inspector for Chg Fwd Exam Comprehensive
[2021-07-12] MEDS: acetaminophen 325 mg Tablet 650 MG PO (01:14)
--- NOTE | 2021-07-12 01:14 | PC.NURSE ---
patient in no obivous distress. patient sitting up in bed. 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 Patient given water for hydration. patient denies questions/concerns .
[2021-07-12 01:23] VITALS: BP 136/75; PULSE 100; RESP 18; TEMP 37.9; O2SAT 100
== END 2021-07-12 01:25 | disposition home or self-care (01) ==
PROVIDERS: Emergency Provider Emergency Medicine
DX: T40.411A Poisoning by fentanyl or fentanyl analogs, accidental (unintentional), initial encounter (principal); Z86.14 Personal history of Methicillin resistant Staphylococcus aureus infection; F17.200 Nicotine dependence, unspecified, uncomplicated; F19.10 Other psychoactive substance abuse, uncomplicated
CPT/HCPCS: 99283

== ENCOUNTER 2021-12-31 03:49 | Emergency (ER) | payer MEDICAID, SELFPAY ==
[2021-12-31 03:55] VITALS: BP 120/76; PULSE 105; RESP 20; TEMP 36.6; O2SAT 98; BMI 30.3
[2021-12-31 04:01] VITALS: BP 120/76; PULSE 105; RESP 20; TEMP 36.6; O2SAT 98
[2021-12-31 05:09] VITALS: BP 120/72; PULSE 87; RESP 16; TEMP 36.6; O2SAT 98
--- NOTE | 2022-01-03 01:51 | W.ED.WOUNDLC ---
HPI - Wound/Laceration General: Chief Complaint: Wound/Laceration Stated Complaint: Injury Left Eye Time Seen by Provider: 12/31/21 04:19 Source: patient History of Present Illness: 36 year old male who evidently fell and struck his face on a rock. He has a laceration to the left eyebrow. There is no loss of consciousness. No prolonged downtime. he wanted to super glue the cut at home, but did not know if it would hold. Onset (ago): minute(s) Location: face Place: home and outdoors Patient tetanus UTD: Yes Context: accidental Associated symptoms: Reports no associated symptoms; Denies fever(s), nausea or vomiting Review of Systems Const: Denies: fever(s) Eyes: Denies: change in vision or blurry vision Card: Denies: chest pain or palpitations Resp: Denies: dyspnea, productive cough or non-productive cough GI: Denies: abdominal pain, nausea or vomiting Neuro: Denies: headache(s) PFSH ED PFSH: Medical History IV drug abuse Psychiatric care Smoking addiction Surgical History Abscess of hand MRSA S/P patch closure of atrial septal defect Family History Mother Non-alcoholic cirrhosis Social History Smoking and tobacco status: current every day smoker Alcohol intake: never Desire information about substance/drug rehabilitation?: Yes Counseling given: Yes Physical Exam Const: COMMON NORMALS: no acute distress GENERAL APPEARANCE: cooperative and comfortable; not ill appearing and not frail appearing HENMT: COMMON NORMALS: normocephalic and Normal external nose present HEAD & SCALP: normocephalic and laceration (4cm L eyebrow); no raccoon eyes FACE & SINUS: no erythema and no edema NOSE: Normal external nose present and Normal nares present Eye: COMMON NORMALS: Equal, round and reactive pupils present and EOMs intact bilaterally PUPIL: Yes Equal, round and reactive pupils present Neck/C-Spine: GENERAL: Yes trachea midline CERVICAL SPINE: Yes cervical ROM normal and No Cervical spine tenderness Chest: COMMONS NORMALS: normal inspection of the chest and normal palpation of entire chest wall Breast/axilla inspection: Yes no chest deformity, asymmetry, normal contours, no nodules, masses, tenderness Resp: COMMON NORMALS: normal respiratory effort, No retractions, No use of accessory muscles and clear to auscultation bilaterally AUSCULTATION: clear to auscultation bilaterally Cardio: COMMON NORMALS: regular rate and regular rhythm RATE: regular rate RHYTHM: regular rhythm GI: INSPECTION: Yes normal to inspection and Yes Abdominal wall edema : COMMON NORMALS: Yes no CVA tenderness BLADDER/KIDNEY EXAM: Yes no CVA tenderness Back/Pelvis: COMMON NORMALS: no CVA tenderness Extremity: COMMON NORMALS: no pedal edema Procedures Laceration Laceration 1: Site: face Side (If applicable): left Size (cm): 4 Description: linear Depth: simple, single layer Local Anesthetic: lidocaine 1% Amount of anesthesia used (mL): 5 Pre-repair: wound explored, irrigated extensively and deep structures intact Skin layer closed with: nylon Size (cm): 5-0 Number of sutures: 8 Technique: simple, interrupted Course Vital Signs: Vital signs: Vital Signs Temperature 97.8 F 12/31/21 05:09 Pulse Rate 87 12/31/21 05:09 Respiratory Rate 16 12/31/21 05:09 Blood Pressure 120/72 12/31/21 05:09 Pulse Oximetry 98 12/31/21 05:09 MDM - Wound/Laceration Medical Decision Making The patient's mental status is baseline. No neurological findings on exam. The laceration is repaired without complication. He wishes to go home. He does not believe he needs a CT scan. No other injury. He'll be allowed home. Sutures out in five to seven days. Discharge Plan Discharge Patient Disposition: Home Clinical Impression: Laceration of eyebrow Qualifiers: Encounter type: initial encounter Laterality: left Qualified Code(s): S01.112A - Laceration without foreign body of left eyelid and periocular area, initial encounter Condition: Stable Prescriptions: No Action Narcan 4 mg/actuation spray,non-aerosol 4 mg intranasal Q2M PRN (Reason: opioid overdose) Qty: 2 0RF Rx Instructions: spray 1 dose into ONE nostril; alternate nostrils w each dose until help arrives hydrocodone-acetaminophen 5-325 mg tablet 1 tab PO Q6H PRN (Reason: Pain) 0RF Hold Instructions: Resume on 06/02/21. ibuprofen 200 mg Tablet 400 mg PO Q4H PRN (Reason: Pain) 0RF Discharge Orders: Discharge ED (Routine); Ordered 12/31/21 Ordered By: Dariusz Costello Patient Instructions: Facial Laceration (ED) Activity Restrictions/Additional Instructions: Keep area clean and dry for 24 hours, then may wash with soap and running water. Do not soak. Do not get in a pool until sutures are out. Sutures should be removed in 7 days or so. Follow-up with your doctor or an urgent care setting to do so. Return for worsening headache, trouble with vision, vomiting, mental status problems, weakness, any other concerning symptoms. Coding Level of Care Code ED Hand Filer Balance Wheel for Gypsy Claros
== END 2021-12-31 05:12 | disposition home or self-care (01) ==
PROVIDERS: Emergency Provider Emergency Medicine
DX: S01.112A Laceration without foreign body of left eyelid and periocular area, initial encounter (principal); F17.210 Nicotine dependence, cigarettes, uncomplicated; W19.XXXA Unspecified fall, initial encounter
CPT/HCPCS: 12013; 99282

== ENCOUNTER 2022-01-05 02:34 | Emergency (ER) | payer MEDICAID, SELFPAY ==
[2022-01-05 02:35] VITALS: BP 140/95; PULSE 113; RESP 18; TEMP 38.1; O2SAT 98; BMI 30.3
--- NOTE | 2022-01-05 02:37 | XRR_ITS ---
PROCEDURE INFORMATION: Exam: XR Chest Exam date and time: 01/05/2022 3:26 AM Age: 36 years old Clinical indication: Other: Od TECHNIQUE: Imaging protocol: Radiologic exam of the chest. Views: 1 view. COMPARISON: CT chest w con* [id number] 03/25/2021 5:02 PM FINDINGS: Lungs: There are normal lung volumes without interstitial or airspace opacities. Pleural spaces: There are no pleural effusions or pneumothorax. Heart/Mediastinum: The heart size is normal. The pulmonary vasculature is normal. The mediastinal contour is normal. The trachea is in the midline. Bones/joints: No acute abnormalities. XR/XR chest 1V portable [id number] IMPRESSION: No chest radiographic evidence of acute cardiopulmonary disease.
--- NOTE | 2022-01-05 02:38 | ECG_ITS ---
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 Measurements Intervals [place] Rate: 103 P: 45 GA: 152 QRS: 73 QRSD: 91 T: 58 QT: 321 QTc: 422 Interpretive Statements SINUS TACHYCARDIA POSSIBLE RIGHT VENTRICULAR CONDUCTION DELAY [RSR (QR) IN V1/V2] ABNORMAL RHYTHM ECG Compared to ECG 03/23/2021 13:28:02 Sinus rhythm no longer present Incomplete right bundle-branch block no longer present Electronically Signed On 01-05-2022 17:10:25 CDT by Julio Mills M.D. [id number]
--- NOTE | 2022-01-05 02:38 | W.ED.OVERDOS ---
HPI - Overdose General: Chief Complaint: General Medical Stated Complaint: OD Time Seen by Provider: 01/05/22 02:35 Source: patient and EMS Mode of arrival: EMS Limitations: no limitations History of Present Illness: 36-year-old male that states he was recreationally doing IV fentanyl tonight. He was there with another person and he had overdosed stated called EMS when EMS arrived patient was unresponsive with sonorous respirations he was given 1.4 mg Narcan IV roughly 15 minutes ago he is now awake and alert. Patient is overdosed before on fentanyl he states that he was not trying to kill himself he was doing it recreationally. He denies any suicidal ideation has no complaints at this time. Review of Systems Const: Denies: fever(s), chills, body aches or change in appetite Eyes: Denies: blurry vision or eye discomfort ENMT: Denies: throat pain or dental pain Card: Denies: chest pain Resp: Denies: dyspnea GI: Denies: abdominal pain, nausea, vomiting or diarrhea : Denies: dysuria Musc: Denies: neck pain or back pain Skin/Breast: Denies: rash Neuro: Denies: headache(s) Psych: Denies: depression Suleiman/Lymph: Denies: easy bruising All/Imm: Denies: urticaria PFSH ED PFSH: Medical History IV drug abuse Psychiatric care Smoking addiction Surgical History Abscess of hand MRSA S/P patch closure of atrial septal defect Family History Mother Non-alcoholic cirrhosis Social History Smoking and tobacco status: current every day smoker Alcohol intake: never Desire information about substance/drug rehabilitation?: Yes Counseling given: Yes Physical Exam Const: COMMON NORMALS: no acute distress, patient oriented x3 and healthy appearing HENMT: COMMON NORMALS: normocephalic and atraumatic HEAD & SCALP: normocephalic and atraumatic Eye: COMMON NORMALS: Equal, round and reactive pupils present and EOMs intact bilaterally PUPIL: Yes Equal, round and reactive pupils present Neck/C-Spine: COMMON NORMALS: full ROM and supple Chest: COMMONS NORMALS: normal inspection of the chest and normal palpation of entire chest wall Resp: COMMON NORMALS: normal respiratory effort, No retractions, No use of accessory muscles and clear to auscultation bilaterally AUSCULTATION: clear to auscultation bilaterally Cardio: COMMON NORMALS: regular rate, regular rhythm and No murmurs present (Cardio) RATE: regular rate RHYTHM: regular rhythm GI: COMMON NORMALS: Normal to inspection, nondistended, normoactive bowel sounds present, Soft to palpation, non-tender and no masses PALPATION: Yes Soft to palpation Extremity: COMMON NORMALS: normal to inspection and full ROM Neuro: COMMON NORMALS: patient oriented x3, moves all extremities and no focal motor deficits Psych: COMMON NORMALS: mental status grossly normal, Normal thought process present and cooperative THOUGHT PROCESS: Normal thought process present Skin: COMMON NORMALS: no rashes or lesions noted and no wounds GENERAL SKIN EXAM: no rashes or lesions noted Course Vital Signs: Vital signs: Vital Signs Temperature 100.6 F H 01/05/22 02:35 Pulse Rate 107 H 01/05/22 03:41 Respiratory Rate 18 01/05/22 03:41 Blood Pressure 123/84 01/05/22 03:41 Pulse Oximetry 99 01/05/22 03:41 MDM - Overdose Medical Decision Making Patient presents here after a fentanyl overdose he is requesting discharge he is well-appearing here at this time will discharge at this time he is to follow-up PCP return if worsening. Lab Data : 01/05/22 02:40 01/05/22 02:40 Laboratory Results WBC 7.3 10^3/uL (4.0-10.0) 01/05/22 02:40 RBC 4.82 10^6/uL (4.1-5.3) 01/05/22 02:40 Hgb 14.5 g/dL (11.7-16.6) 01/05/22 02:40 Hct 42.0 % (42.0-52.0) 01/05/22 02:40 MCV 87.1 fl (80-94) 01/05/22 02:40 MCH 30.1 pg (28.0-34.0) 01/05/22 02:40 MCHC 34.5 g/dL (30.0-36.0) 01/05/22 02:40 RDW 13.6 % (12.1-15.1) 01/05/22 02:40 Plt Count 200 10^3/cmm (130-400) 01/05/22 02:40 MPV 10.5 fL (7.4-10.4) H 01/05/22 02:40 Neut % (Auto) 61.1 % 01/05/22 02:40 Lymph % (Auto) 27.9 % 01/05/22 02:40 [place] % (Auto) 8.4 % 01/05/22 02:40 Eos % (Auto) 1.9 % 01/05/22 02:40 Baso % (Auto) 0.4 % 01/05/22 02:40 Neut # (Auto) 4.43 10^3/uL (1.8-7.7) 01/05/22 02:40 Lymph # (Auto) 2.0 10^3/uL (0.8-4.8) 01/05/22 02:40 [place] # (Auto) 0.6 10^3/uL (0.2-0.9) 01/05/22 02:40 Eos # (Auto) 0.1 10^3/uL (0.0-0.8) 01/05/22 02:40 Baso # (Auto) 0.0 10^3/uL (0.0-0.1) 01/05/22 02:40 Nucleated RBC % (auto) 0 % 01/05/22 02:40 Nucleated RBCs # 0.0 /100WBC 01/05/22 02:40 Sodium 137 mmol/L (136-145) 01/05/22 02:40 Potassium 3.6 mmol/L (3.5-5.1) 01/05/22 02:40 Chloride 96 mmol/L (98-107) L 01/05/22 02:40 Carbon Dioxide 29 mmol/L (22-29) 01/05/22 02:40 Anion Gap 15.6 (5-19) 01/05/22 02:40 BUN 10 mg/dL (6-20) 01/05/22 02:40 Creatinine 0.9 mg/dL (0.7-1.2) 01/05/22 02:40 GFR Calculation 96.6 mL/min (90-130) 01/05/22 02:40 Glucose 97 mg/dL (65-115) 01/05/22 02:40 Calculated Osmolality 283 mOsm/kg (285-295) L 01/05/22 02:40 Calcium 9.0 mg/dL (8.5-10.5) 01/05/22 02:40 Total Bilirubin 0.5 mg/dL (0.15-1.2) 01/05/22 02:40 AST 157 U/L (0-40) H 01/05/22 02:40 ALT 231 U/L (0-41) H 01/05/22 02:40 Alkaline Phosphatase 108 IU/L (40-130) 01/05/22 02:40 Total Protein 8.0 g/dL (6.6-8.7) 01/05/22 02:40 Albumin 4.5 g/dL (3.5-5.2) 01/05/22 02:40 Globulin 3.5 g/dL (1.3-4.6) 01/05/22 02:40 EKG Data EKG 1: I personally reviewed and interpreted this EKG as follows: EKG interpretation date: 01/05/22 EKG interpretation time: 02:43 Interpretation: sinus tach hr [address] or t wave abnormalities qrs 91 qtc 381 Discharge Plan Discharge Patient Disposition: Home Clinical Impression: Overdose Condition: Stable Prescriptions: No Action Narcan 4 mg/actuation spray,non-aerosol 4 mg intranasal Q2M PRN (Reason: opioid overdose) Qty: 2 0RF Rx Instructions: spray 1 dose into ONE nostril; alternate nostrils w each dose until help arrives hydrocodone-acetaminophen 5-325 mg tablet 1 tab PO Q6H PRN (Reason: Pain) 0RF Hold Instructions: Resume on 06/02/21. ibuprofen 200 mg Tablet 400 mg PO Q4H PRN (Reason: Pain) 0RF Discharge Orders: Discharge ED (Routine); Ordered 01/05/22 Ordered By: Ping Washington Discharge Diet: Advance as tolerated Discharge Activity: Resume usual activity Patient Instructions: Narcotic Use Disorder (ED) Coding Level of Care Code ED [employer] Inserter for Chg Fwd Exam Comprehensive
[2022-01-05 02:46] LABS: Basophils % 0.4 %; Eosinophils # 0.1 10^3/uL (0.0-0.8); Eosinophils % 1.9 %; Hemoglobin 14.5 g/dL (11.7-16.6); Lymphocytes % 27.9 %; Mean Corpuscular HGB Conc 34.5 g/dL (30.0-36.0); Mean Corpuscular Hemoglobin 30.1 pg (28.0-34.0); Mean Corpuscular Volume 87.1 fl (80-94); Mean Platelet Volume 10.5 fL (7.4-10.4); Monocytes # 0.6 10^3/uL (0.2-0.9); Monocytes % 8.4 %; Neutrophils # 4.43 10^3/uL (1.8-7.7); Neutrophils % 61.1 %; Nucleated Red Blood Cells % 0 %; Platelet Count 200 10^3/cmm (130-400); Red Blood Count 4.82 10^6/uL (4.1-5.3); Red Cell Distribution Width 13.6 % (12.1-15.1); White Blood Count 7.3 10^3/uL (4.0-10.0)
[2022-01-05] MEDS: acetaminophen 325 mg Tablet 650 MG PO (03:00)
[2022-01-05 03:06] LABS: Alanine Aminotransferase 231 U/L (0-41); Albumin Level 4.5 g/dL (3.5-5.2); Alkaline Phosphatase 108 IU/L (40-130); Anion Gap 15.6 (5-19); Aspartate Amino Transferase 157 U/L (0-40); Blood Urea Nitrogen 10 mg/dL (6-20); Carbon Dioxide 29 mmol/L (22-29); Chloride 96 mmol/L (98-107); Globulin 3.5 g/dL (1.3-4.6); Glomerular Filtration Rate 96.6 mL/min (90-130); Glucose 97 mg/dL (65-115); Osmolality Calculated 283 mOsm/kg (285-295); Potassium 3.6 mmol/L (3.5-5.1); Sodium 137 mmol/L (136-145); Total Bilirubin 0.5 mg/dL (0.15-1.2)
[2022-01-05 03:41] VITALS: BP 123/84; PULSE 107; RESP 18; O2SAT 99
[2022-01-05 04:06] VITALS: BP 127/92; PULSE 103; RESP 16; O2SAT 98
== END 2022-01-05 04:08 | disposition home or self-care (01) ==
PROVIDERS: Emergency Provider Emergency Medicine
DX: T40.411A Poisoning by fentanyl or fentanyl analogs, accidental (unintentional), initial encounter (principal); F17.210 Nicotine dependence, cigarettes, uncomplicated
CPT/HCPCS: 71045; 80053; 85025; 93005; 99285

== ENCOUNTER → 2022-05-28 09:37 | Outpatient (BNVA) | payer MEDICAID, SELFPAY | PROVIDERS: PCP Family Medicine; Visit Provider Family Medicine | DX: B19.20 Unspecified viral hepatitis C without hepatic coma (principal); F17.200 Nicotine dependence, unspecified, uncomplicated; F15.20 Other stimulant dependence, uncomplicated; F11.11 Opioid abuse, in remission; R22.42 Localized swelling, mass and lump, left lower limb; Z71.6 Tobacco abuse counseling; Z23 Encounter for immunization | CPT/HCPCS: 80053; 85025; 86705; 86706; 86709; 86803; 87340; 87522 ==

== ENCOUNTER → 2022-06-29 08:52 | Outpatient (BNVA) | payer MEDICAID, SELFPAY | PROVIDERS: PCP Family Medicine; Visit Provider Podiatrist Foot & Ankle Surgery | DX: M72.2 Plantar fascial fibromatosis (principal); R22.42 Localized swelling, mass and lump, left lower limb | CPT/HCPCS: 73630 ==